=== PATIENT | male | born 1940 | race Caucasian/White ===

== ENCOUNTER → 2020-08-10 | Outpatient (CLI) | payer MEDICARE, BC ==
--- NOTE | 2020-08-11 10:51 | ECHOF ---
Referral Reason:[id number] MEASUREMENTS -------- HEIGHT: 175.3 cm WEIGHT: 103.9 kg BP: IVSd: 1.4 cm (0.6 - 1.1) LVIDd: 5.9 cm (3.9 - 5.3) LVPWd: 1.7 cm (0.6 - 1.1) IVSs: 1.8 cm LVIDs: 4.7 cm LVPWs: 1.9 cm LA Diam: 4.0 cm (2.7 - 3.8) LAESV Index (A-L): 32.71 ml/m IVSd: 1.5 cm (0.6 - 1.1) LVIDd: 4.8 cm (3.9 - 5.3) LVPWd: 1.7 cm (0.6 - 1.1) EDV(Teich): 106 ml Ao Diam: 3.2 cm (2.0 - 3.7) AV Cusp: 2.0 cm (1.5 - 2.6) LA Diam: 4.1 cm (2.7 - 3.8) MV EXCURSION: 14.447 mm (> 18.000) MV EF SLOPE: 81 mm/s (70 - 150) EPSS: 0.6 cm MV E Yovani: 0.49 m/s MV DecT: 243 ms MV A Yovani: 1.27 m/s MV E/A Ratio: 0.39 RAP: 5.00 mmHg RVSP: 12.99 mmHg FINDINGS -------- Sinus rhythm. This was a technically adequate study. The left ventricular size is normal. There is moderate concentric left ventricular hypertrophy. O verall left ventricular systolic function is low-normal with, an EF between 50 - 55 %. The right ventricle is normal in size. LA is midly dilated 29-33ml/m2. The right atrial size is normal. The aortic valve is trileaflet, and appears structurally normal. No aortic stenosis or regurgitation. Mild mitral regurgitation is present. Mild tricuspid regurgitation present. Right ventricular systolic pressure is normal at < 35 mmHg. There is no pulmonic regurgitation present. The aortic root size is normal. There is no pericardial effusion. CONCLUSIONS -------- 1. The left ventricular size is normal. 2. There is moderate concentric left ventricular hypertrophy. 3. Overall left ventricular systolic function is low-normal with, an EF between 50 - 55 %. 4. The right ventricle is normal in size. 5. LA is midly dilated 29-33ml/m2. 6. The right atrial size is normal. 7. The aortic valve is trileaflet, and appears structurally normal. No aortic stenosis or regurgitati on. 8. Mild mitral regurgitation is present. 9. Mild tricuspid regurgitation present. 10. The aortic root size is normal. 11. There is no pericardial effusion. SALES MANAGER [employer]: Anahi Judge RDCS
== END | disposition home or self-care (01) ==
LOC: RADECHMAIN 13:47
PROVIDERS: ATTEND Family Medicine
DX: I08.1 Rheumatic disorders of both mitral and tricuspid valves (principal)
CPT/HCPCS: 93306

== ENCOUNTER → 2020-08-28 | Outpatient (CLI) | payer MEDICARE, BC ==
--- NOTE | 2020-08-28 13:45 | US ---
EXAMINATION TYPE: US carotid duplex BILAT DATE OF EXAM: 08/28/2020 COMPARISON: NONE CLINICAL HISTORY: I10 Hypertension. very nervous patient with htn EXAM MEASUREMENTS: RIGHT: Peak Systolic Velocity (PSV) cm/sec ----- Right CCA: 143.1 ----- Right ICA: 130.3 ----- Right ECA: 147.1 ICA/CCA ratio: 0.9 RIGHT: End Diastole cm/sec ----- Right CCA: 38.6 ----- Right ICA: 44.6 ----- Right ECA: 17.0 LEFT: Peak Systolic Velocity (PSV) cm/sec ----- Left CCA: 137.2 ----- Left ICA: 84.4 ----- Left ECA: 111.6 ICA/CCA ratio: 0.6 LEFT: End Diastole cm/sec ----- Left CCA: 28.8 ----- Left ICA: 20.5 ----- Left ECA: 20.9 VERTEBRALS (direction of flow): Right Vertebral: Antegrade Left Vertebral: Antegrade Rhythm: Normal Mild homogeneous plaque seen bilaterally. IMPRESSION: Minimally elevated peak systolic velocity of the right internal carotid artery is most consistent wit h a 50-69% stenosis. Criteria for Assigning % of Stenosis / Diameter reduction (Estimation based on the indirect measurements of the internal carotid artery velocities (ICA PSV). 1. Normal (no stenosis)=ICA PSV < 125 cm/s: ratio < 2.0: ICA EDV<40 cm/s. 2. Less than 50% stenosis=ICA PSV < 125 cm/s: ratio < 2.0: ICA EDV<40 cm/s. 3. 50 to 69% stenosis=ICA PSV of 125 to 230 cm/s: ration 2.0 ? 4.0: ICA EDV 40-100 cm/s. 4. Greater than 70% stenosis to near occlusion= ICA PSV > 230 cm/s: ratio > 4.0: ICA EDV > 100 cm/s. 5. Near occlusion= ICA PSV velocities may be low or undetectable: variable ratio and ICA EDV. 6. Total occlusion=unable to detect flow.
== END | disposition home or self-care (01) ==
LOC: RADUSWWP 10:56
PROVIDERS: ATTEND Family Medicine
DX: I65.21 Occlusion and stenosis of right carotid artery (principal)
CPT/HCPCS: 93880

== ENCOUNTER → 2023-01-10 | Outpatient (CLI) | payer MEDICARE ==
--- NOTE | 2023-01-10 15:25 | US ---
EXAMINATION TYPE: US kidneys/renal and bladder DATE OF EXAM: 01/10/2023 COMPARISON: NONE CLINICAL INDICATION: Male, 82 years old with history of R94.4 ABNORMAL RESULTS OF KIDNEY FUNCTION SALOMÓN DIES; abn renal function test EXAM MEASUREMENTS: Right Kidney: 9.5 x 4.6 x 4.3 cm Left Kidney: 10.2 x 4.5 x 3.7 cm Right Kidney: No hydronephrosis or masses seen Left Kidney: No hydronephrosis or masses seen Bladder: wnl Bilateral Jets seen: Yes There is no evidence for hydronephrosis at this point in time. Corticomedullary differentiation is m aintained bilaterally. No nephrolithiasis is seen. No solid masses are identified. Simple left mid kidney 1.3 cm cyst. The urinary bladder is anechoic. Bilateral ureteral jets are seen. IMPRESSION: 1. No hydronephrosis or nephrolithiasis. 2. Simple left renal cyst.
== END | disposition home or self-care (01) ==
LOC: RADUSWWP 14:40
PROVIDERS: ATTEND Family Medicine
DX: N28.1 Cyst of kidney, acquired (principal); R94.4 Abnormal results of kidney function studies
CPT/HCPCS: 76770

== ENCOUNTER 2024-05-11 12:31 | Inpatient (IN) | payer MEDICARE ==
--- NOTE | 2024-05-11 13:39 | ED ---
General Adult HPI <Ton Penn - Last Filed: 05/11/24 16:53> - General Source: patient, family, EMS, RN notes reviewed, old records reviewed Mode of arrival: EMS Limitations: altered mental status <Remington Eason - Last Filed: 05/12/24 07:21> - General Chief complaint: Weakness Stated complaint: Weakness Time Seen by Provider: 05/11/24 12:36 - History of Present Illness Initial comments: Patient is a 83-year-old male who presents to the emergency department family over concern for dehydration. Patient was found with his pants off and vomit all over his shirt. He states that he had numerous episodes of emesis yesterday as well as numerous episodes of diarrhea. Patient states that his girlfriend is also sick. Denies any fevers. Denies any significant cough or congestion. D oes endorse some crampy lower abdominal pain. Denies any blood in his vomit or in his stool. Denies any bilious emesis. States he feels very thirsty. Denies any urinary complaints. Has a history of hypertension, hyperlipidemia, diabetes that is not insulin-dependent. Presents for further evaluation at this time. Upon arrival, it was found that patient has bedbugs and was decontaminated. (Remington Eason) - Related Data Home Medications Medication Instructions Recorded Confirmed Aspirin EC [Ecotrin Low Dose] 81 mg PO DAILY 05/11/24 05/11/24 Atorvastatin [Lipitor] 20 mg PO HS 05/11/24 05/11/24 Latanoprost [Latanoprost 0.005%] 1 drop BOTH EYES HS 05/11/24 05/11/24 Loratadine 10 mg PO DAILY 05/11/24 05/11/24 Timolol 0.25% Ophth Soln [Timoptic 1 drop BOTH EYES DAILY 05/11/24 05/11/24 0.25% Ophth Soln] hydroCHLOROthiazide [Hydrodiuril] 25 mg PO DAILY 05/11/24 05/11/24 lisinopriL [Zestril] 20 mg PO DAILY 05/11/24 05/11/24 metFORMIN HCL [Glucophage] 1,000 mg PO W/SUPPER 05/11/24 05/11/24 Allergies Allergy/AdvReac Type Severity Reaction Status Date / Time No Known Allergies Allergy Verified 05/11/24 17:13 Review of Systems ROS Other: All systems not noted in ROS Statement are negative. <IsamarTon - Last Filed: 05/11/24 16:53> ROS Other: All systems not noted in ROS Statement are negative. <Remington Eason - Last Filed: 05/12/24 07:21> ROS Statement: Those systems with pertinent positive or pertinent negative responses have been documented in the HPI. Review of Systems: CONST: Denies fever EYES: Denies blurry vision ENT: Denies nasal congestion C/V: Denies Chest pain RESP: Denies shortness of breath GI: Endorses abdominal pain : Denies dysuria SKIN: Denies rash. MSK: Denies joint pain. NEURO: Endorses generalized weakness (Remington Eason) Past Medical History Past Medical History: Diabetes Mellitus, Hypertension History of Any Multi-Drug Resistant Organisms: None Reported Additional Past Surgical History / Comment(s): left eye surgery 2022 Past Psychological History: PTSD Smoking Status: Former smoker Past Alcohol Use History: None Reported Past Drug Use History: None Reported <Remington Eason - Last Filed: 05/12/24 07:21> General Exam Limitations: altered mental status <Remington Eason - Last Filed: 05/12/24 07:21> - General Exam Comments Initial Comments: General: Appears in mild distress. HEAD: Normal with no signs of head trauma. EYES: PERRLA, EOMI, conjunctiva normal, no discharge. Pupils are 3 mm and equal bilaterally. ENT: Hearing grossly intact, normal oropharynx. Dry mucous membranes. RESPIRATORY: Clear breath sounds bilaterally. No wheezes, rales, or rhonchi. C/V: Regular rate and rhythm. S1 and S2 auscultated, no edema, peripheral pulses 2+ and intact throughout ABD: Abdomen soft, nondistended. Mildly tender to palpation across the lower quadrants. No guarding or rebound tenderness. No peritoneal signs. EXT: Normal range of motion, no obvious deformity SKIN: No rashes or lesions observed on exposed skin. NEURO: Alert and oriented x 4. No focal deficits. (Remington Eason) Course <ShayneTon bravo - Last Filed: 05/11/24 16:53> Vital Signs 05/11/24 05/11/24 05/11/24 12:33 13:42 14:24 Temperature 98.2 F Pulse Rate 73 79 71 Respiratory 18 18 18 Rate Blood Pressure 109/54 92/56 109/57 O2 Sat by Pulse 97 97 97 Oximetry 05/11/24 05/11/24 05/11/24 15:11 20:04 22:00 Temperature 98.4 F Pulse Rate 73 73 87 Respiratory 18 18 18 Rate Blood Pressure 113/60 123/73 120/67 O2 Sat by Pulse 96 96 96 Oximetry 05/12/24 05/12/24 01:00 06:26 Temperature Pulse Rate 83 87 Respiratory 18 18 Rate Blood Pressure 114/62 115/63 O2 Sat by Pulse 97 Oximetry - Reevaluation(s) Reevaluation #1: 05/11/24 16:54 I received this patient as a signout pending results of some of the studies. I received CT result, reviewed the labs, discussed the findings with the patient daughter. I reviewed that the patient was being admitted with consultations. We reviewed the CODE STATUS and she clarified that the patient would not want any artificial life support including no intubation or CPR. She stated that he would want all medications. Case discussed with the admitting physician. Case discussed with Dr. Joyner the earth science teacher, treatment recommendations incorporated. (Ton Penn) Procedures - Sepsis Sepsis Focused Exam #1 Time Sepsis Criteria Met: 14:20 Sepsis Focused Exam Date: 05/11/24 Sepsis Focused Exam Time: 14:30 Sepsis Focused Exam Complete: Yes Vital Signs & RN Notes Reviewed: Yes Capillary Refill: > 2 Seconds: Fingers, Toes Peripheral Pulses: Normal: Radial (R), Radial (L) Skin Color: Normal for Patient Respiratory Exam: normal lung sounds Cardiovascular Exam: regular rate, normal rhythm <Remington Eason - Last Filed: 05/12/24 07:21> Medical Decision Making - Lab Data Result diagrams: 05/11/24 13:42 05/11/24 13:42 <Ton Penn - Last Filed: 05/11/24 16:53> - Lab Data Result diagrams: 05/11/24 13:42 05/12/24 03:18 - EKG Data -: EKG Interpreted by Me <Remington Eason - Last Filed: 05/12/24 07:21> - Medical Decision Making Was pt. sent in by a medical professional or institution (, PA, LINE UP MACHINE OPERATOR, urgent c are, hospital, or skilled nursing...) When possible be specific @ -No Did you speak to anyone other than the patient for history (EMS, parent, family, police, friend...)? What history was obtained from this source @ -Spoke with patient's daughter who corroborated the story is provided by the patient. Did you review nursing and triage notes (agree or disagree)? Why? @ -I reviewed and agree with nursing and triage notes Were old charts reviewed (outside hosp., previous admission, EMS record, old EKG, old radiological studies, urgent care reports/EKG's, skilled nursing records)? Report findings @ -No old charts were reviewed Differential Diagnosis (chest pain, altered mental status, abdominal pain women, abdominal pain men, vaginal bleeding, weakness, fever, dyspnea, syncope, headache, dizziness, GI bleed, back pain, seizure, CVA, palpatations, mental health, musculoskeletal)? @ -Differential Weakness: Hypoglycemia, shock, sepsis, hyponatremia, anemia, infection, AR, ETOH, adverse medicine reaction, overdose, stroke, this is not meant to be an all-inclusive list. EKG interpreted by me (3pts min.). @ -As above X-rays interpreted by me (1pt min.). @ -Pending CT interpreted by me (1pt min.). @ -Pending U/S interpreted by me (1pt. min.). @ -None done What testing was considered but not performed or refused? (CT, X-rays, U/S, labs)? Why? @ -None What meds were considered but not given or refused? Why? @ -None Did you discuss the management of the patient with other professionals (professionals i.e. , PA, LINE UP MACHINE OPERATOR, lab, RT, psych nurse, public health social worker, rug clipper, teacher, communications officer, ed case manager)? Give summary @ -No Was smoking cessation discussed for >3mins.? @ -No Was critical care preformed (if so, how long)? @ -Yes, 31 minutes Were there social determinants of health that impacted care today? How? (Homelessness, low income, unemployed, alcoholism, drug addiction, transportation, low edu. Level, literacy, decrease access to med. care, senior care, rehab)? @ -No Was there de-escalation of care discussed even if they declined (Discuss DNR or withdrawal of care, Hospice)? DNR status @ -No What co-morbidities impacted this encounter? (DM, HTN, Smoking, COPD, CAD, C ancer, CVA, ARF, Chemo, Hep., AIDS, mental health diagnosis, sleep apnea, morbid obesity)? @ -None Was patient admitted / discharged? Hospital course, mention meds given and route, prescriptions, significant lab abnormalities, going to OR and other pertinent info. @ -Patient presents emergency department complaining of weakness, nausea, vomiting, diarrhea. Also has some mild abdominal discomfort. We will obtain abdominal lab workup, CT abdomen pelvis, screening EKG. Patient was in agreement this plan. He will be administered 2 L fluid bolus. He declines analgesia medications and antiemetics at this time. Vital signs are remarkable for mild hypotension which is likely secondary to dehydration. EKG shows no signs of acute ischemia.Patient's laboratory studies returned markable for leukocytosis of 24.1. Lactic acidosis of 8.9. Patient's blood pressure did improve following initial fluid administration. However patient does meet sepsis criteria at 1420. Patient initiated on broad-spectrum antibiotics, blood culture obtained and sent, patient already received 30 cc/kg fluid bolus with 2 L of lactated Ringer's as well as started on 130 cc an hour of lactated Ringer's. Patient CT imaging changed to CT without contrast due to an MADI. Patient has a lactic acidosis with an anion gap of 23. BUN is 50, creatinine is 3.15. Remainder the labs are still pending at this time. At this time is in my shift. Patient signed out to oncoming ER physician Dr. Penn who will follow-up on the remainder the workup. Undiagnosed new problem with uncertain prognosis? @ -No Drug Therapy requiring intensive monitoring for toxicity (Heparin, Nitro, Insulin, Cardizem)? @ -No Were any procedures done? @ -No Diagnosis/symptom? @ -Sepsis from colitis, dehydration wit MADI, nausea/vomiting/diarrhea Acute, or Chronic, or Acute on Chronic? @ -Acute Uncomplicated (without systemic symptoms) or Complicated (systemic symptoms)? @ -Complicated Side effects of treatment? @ -None Exacerbation, Progression, or Severe Exacerbation] @ -No Poses a threat to life or bodily function? @ -Yes (Remington Eason) - Lab Data Lab Results 03/08/25 03/08/25 03/08/25 Range/Units 13:42 13:42 13:42 WBC 24.1 H (3.8-10.6) k/uL RBC 3.86 L (4.30-5.90) m/uL Hgb 12.3 L (13.0-17.5) gm/dL Hct 39.0 (39.0-53.0) % MCV 101.1 H (80.0-100.0) fL MCH 31.9 (25.0-35.0) pg MCHC 31.6 (31.0-37.0) g/dL RDW 13.1 (11.5-15.5) % Plt Count 226 (150-450) k/uL MPV 9.0 Neutrophils % 94 % Lymphocytes % 4 % Monocytes % 2 % Eosinophils % 0 % Basophils % 0 % Neutrophils # 22.6 H (1.3-7.7) k/uL Lymphocytes # 0.9 L (1.0-4.8) k/uL Monocytes # 0.5 (0-1.0) k/uL Eosinophils # 0.0 (0-0.7) k/uL Basophils # 0.0 (0-0.2) k/uL PT 11.1 (10.0-12.5) sec INR 1.0 (<1.2) APTT 21.1 L (22.0-30.0) sec Sodium 137 (137-145) mmol/L Potassium 4.4 (3.5-5.1) mmol/L Chloride 96 L (98-107) mmol/L Carbon Dioxide 18 L (22-30) mmol/L Anion Gap 23 mmol/L BUN 50 H (9-20) mg/dL Creatinine 3.15 H (0.66-1.25) mg/dL Est GFR (CKD-EPI)AfAm 20 (>60 ml/min/1.73 sqM) Est GFR (CKD-EPI)NonAf 18 (>60 ml/min/1.73 sqM) Glucose 145 H (74-99) mg/dL Lactic Ac Sepsis Rflx Plasma Lactic Acid Krishna (0.7-2.0) mmol/L Calcium 9.6 (8.4-10.2) mg/dL Magnesium 2.4 H (1.6-2.3) mg/dL Total Bilirubin 1.1 (0.2-1.3) mg/dL AST 30 (17-59) U/L ALT 27 (4-49) U/L Alkaline Phosphatase 62 (38-126) U/L Total Protein 6.9 (6.3-8.2) g/dL Albumin 4.2 (3.5-5.0) g/dL Acetone, Qual (Negative) Influenza Type A (PCR) (Not Detectd) Influenza Type B (PCR) (Not Detectd) RSV (PCR) (Not Detectd) SARS-CoV-2 (PCR) (Not Detectd) 05/11/24 05/11/24 05/11/24 Range/Units 13:42 13:42 13:42 WBC (3.8-10.6) k/uL RBC (4.30-5.90) m/uL Hgb (13.0-17.5) gm/dL Hct (39.0-53.0) % MCV (80.0-100.0) fL MCH (25.0-35.0) pg MCHC (31.0-37.0) g/dL RDW (11.5-15.5) % Plt Count (150-450) k/uL MPV Neutrophils % % Lymphocytes % % Monocytes % % Eosinophils % % Basophils % % Neutrophils # (1.3-7.7) k/uL Lymphocytes # (1.0-4.8) k/uL Monocytes # (0-1.0) k/uL Eosinophils # (0-0.7) k/uL Basophils # (0-0.2) k/uL PT (10.0-12.5) sec INR (<1.2) APTT (22.0-30.0) sec Sodium (137-145) mmol/L Potassium (3.5-5.1) mmol/L Chloride (98-107) mmol/L Carbon Dioxide (22-30) mmol/L Anion Gap mmol/L BUN (9-20) mg/dL Creatinine (0.66-1.25) mg/dL Est GFR (CKD-EPI)AfAm (>60 ml/min/1.73 sqM) Est GFR (CKD-EPI)NonAf (>60 ml/min/1.73 sqM) Glucose (74-99) mg/dL Lactic Ac Sepsis Rflx Plasma Lactic Acid Krishna 8.9 H* (0.7-2.0) mmol/L Calcium (8.4-10.2) mg/dL Magnesium (1.6-2.3) mg/dL Total Bilirubin (0.2-1.3) mg/dL AST (17-59) U/L ALT (4-49) U/L Alkaline Phosphatase (38-126) U/L Total Protein (6.3-8.2) g/dL Albumin (3.5-5.0) g/dL Acetone, Qual Negative (Negative) Influenza Type A (PCR) Not Detected (Not Detectd) Influenza Type B (PCR) Not Detected (Not Detectd) RSV (PCR) Not Detected (Not Detectd) SARS-CoV-2 (PCR) Not Detected (Not Detectd) 05/11/24 05/11/24 Range/Units 14:19 14:50 WBC (3.8-10.6) k/uL RBC (4.30-5.90) m/uL Hgb (13.0-17.5) gm/dL Hct (39.0-53.0) % MCV (80.0-100.0) fL MCH (25.0-35.0) pg MCHC (31.0-37.0) g/dL RDW (11.5-15.5) % Plt Count (150-450) k/uL MPV Neutrophils % % Lymphocytes % % Monocytes % % Eosinophils % % Basophils % % Neutrophils # (1.3-7.7) k/uL Lymphocytes # (1.0-4.8) k/uL Monocytes # (0-1.0) k/uL Eosinophils # (0-0.7) k/uL Basophils # (0-0.2) k/uL PT (10.0-12.5) sec INR (<1.2) APTT (22.0-30.0) sec Sodium (137-145) mmol/L Potassium (3.5-5.1) mmol/L Chloride (98-107) mmol/L Carbon Dioxide (22-30) mmol/L Anion Gap mmol/L BUN (9-20) mg/dL Creatinine (0.66-1.25) mg/dL Est GFR (CKD-EPI)AfAm (>60 ml/min/1.73 sqM) Est GFR (CKD-EPI)NonAf (>60 ml/min/1.73 sqM) Glucose (74-99) mg/dL Lactic Ac Sepsis Rflx Y Plasma Lactic Acid Krishna 8.4 H* (0.7-2.0) mmol/L Calcium (8.4-10.2) mg/dL Magnesium (1.6-2.3) mg/dL Total Bilirubin (0.2-1.3) mg/dL AST (17-59) U/L ALT (4-49) U/L Alkaline Phosphatase (38-126) U/L Total Protein (6.3-8.2) g/dL Albumin (3.5-5.0) g/dL Acetone, Qual (Negative) Influenza Type A (PCR) (Not Detectd) Influenza Type B (PCR) (Not Detectd) RSV (PCR) (Not Detectd) SARS-CoV-2 (PCR) (Not Detectd) - EKG Data EKG Comments: 12-lead Electrocardiogram Interpretation Note EKG was reviewed and interpreted by myself. 12-lead ECG performed at 1328 is interpreted by me as revealing normal sinus rhythm at a rate of 73 beats per minute. Left axis deviation. IL interval is 260 ms, QRS duration is 138 ms, QTc is 445 ms. There were no ST or T wave abnormalities to suggest myocardial ischemia or injury. R wave progression across the precordium was delayed. By my interpretation this EKG is non-diagnostic for acute ischemia. (Remington Eason) Critical Care Time Critical Care Time: Yes Total Critical Care Time: 31 <Remington Eason - Last Filed: 05/12/24 07:21> Disposition <Ton Penn - Last Filed: 05/11/24 16:53> <Remington Eason - Last Filed: 05/12/24 07:21> Clinical Impression: Nausea and vomiting, Dehydration, Diarrhea, Sepsis Disposition: ADMITTED IP TO THIS HOSP Condition: Serious
[2024-05-11 14:01] LABS: Basophils % (A) 0 %; Eosinophils % (A) 0 %; HGB 12.3 gm/dL (13.0-17.5); Lymphocytes # (A) 0.9 k/uL (1.0-4.8); Lymphocytes % (A) 4 %; MCH 31.9 pg (25.0-35.0); MCHC 31.6 g/dL (31.0-37.0); MCV 101.1 fL (80.0-100.0); Monocytes # (A) 0.5 k/uL (0-1.0); Monocytes % (A) 2 %; Neutrophils # (A) 22.6 k/uL (1.3-7.7); Neutrophils % (A) 94 %; Platelet Count 226 k/uL (150-450); RBC 3.86 m/uL (4.30-5.90); RDW 13.1 % (11.5-15.5); WBC 24.1 k/uL (3.8-10.6)
[2024-05-11] MEDS ORDERED: VANCOMYCIN IV PER PHARMACY 1 EACH MISC MISCELLANE PRN (14:20)
[2024-05-11 14:22] LABS: AST 30 U/L (17-59); African American GFR (CKD) 20 (>60 ml/min/1.73 sqM); Albumin 4.2 g/dL (3.5-5.0); Alkaline Phosphatase 62 U/L (38-126); Anion Gap 23 mmol/L; Blood Urea Nitrogen 50 mg/dL (9-20); Calcium 9.6 mg/dL (8.4-10.2); Carbon Dioxide 18 mmol/L (22-30); Chloride 96 mmol/L (98-107); Glucose 145 mg/dL (74-99); Magnesium 2.4 mg/dL (1.6-2.3); Non-African American GFR(CKD) 18 (>60 ml/min/1.73 sqM); Potassium 4.4 mmol/L (3.5-5.1); Sodium 137 mmol/L (137-145); Total Bilirubin 1.1 mg/dL (0.2-1.3); Total Protein 6.9 g/dL (6.3-8.2)
[2024-05-11 14:36] LABS: Influenza A Not Detected (Not Detectd); Influenza B Not Detected (Not Detectd); RSV Not Detected (Not Detectd)
[2024-05-11 14:40] LABS: Partial Thromboplastin Time 21.1 sec (22.0-30.0); Prothrombin Time 11.1 sec (10.0-12.5)
[2024-05-11 14:51] LABS: ALT 27 U/L (4-49)
[2024-05-11] MEDS: LACTATED RINGERS 1,000 ML IV ONE ×2 (14:52→14:53)
[2024-05-11] MEDS: PIPERACILLIN-TAZOBACTAM 3.375 GM in SODIUM CHLORIDE 0.9% 100 ML IVPB ONE (15:09)
[2024-05-11] MEDS: LACTATED RINGERS 1,000 ML IV SCH (15:11)
--- NOTE | 2024-05-11 15:39 | XR ---
EXAMINATION TYPE: XR chest 2V DATE OF EXAM: 05/11/2024 3:34 PM COMPARISON: None. CLINICAL INDICATION: Male, 83 years old with history of Weakness; LOCATED [facility]IN [facility] TECHNIQUE: XR chest 2V Frontal and lateral views of the chest. FINDINGS: Lungs/Pleura: There is no evidence of pleural effusion, focal consolidation, or pneumothorax. Pulmonary vascularity: Unremarkable. Heart/mediastinum: Cardiomediastinal silhouette is unremarkable. Musculoskeletal: No acute osseous pathology. Other findings: None IMPRESSION: No acute cardiopulmonary disease/process. [facility], , 05/11/2024 3:37 PM
--- NOTE | 2024-05-11 15:49 | CT ---
EXAMINATION TYPE: CT abdomen pelvis wo con DATE OF EXAM: 05/11/2024 3:34 PM COMPARISON: None. CLINICAL INDICATION: Male, 83 years old with history of abd pain, n/v/d; Abdominal pain, N/V/D. TECHNIQUE: Axial CT abdomen pelvis wo con;Sagittal and coronal reformats were created on a separate workstation. Oral contrast used: without Oral Contrast CT DLP: 801.9 mGycm, Automated exposure control for dose reduction was used. FINDINGS: LOWER CHEST: No acute abnormality. ABDOMEN LIVER: Unremarkable GALLBLADDER AND BILE DUCTS: Unremarkable. PANCREAS: Unremarkable. SPLEEN: Unremarkable. ADRENAL GLANDS: Unremarkable. KIDNEYS AND URETERS: No evidence of hydronephrosis or renal calculus. The ureters are unremarkable. Simple cyst in the mid left kidney. PELVIS BLADDER: Circumferential wall thickening of the urinary bladder. REPRODUCTIVE: Unremarkable. ABDOMEN & PELVIS STOMACH AND BOWEL: Stomach and duodenum are unremarkable No evidence of bowel obstruction. Long segme nt wall thickening of the descending and sigmoid colon with surrounding mesenteric inflammation/edema . Small left lower quadrant loculated fluid collection adjacent to the sigmoid colon measuring 3.3 x 3.0 cm without definite evidence of free air. No drainable abscess at this time. Small hiatal hernia. PERITONEUM/RETROPERITONEUM: No evidence of pneumoperitoneum or free fluid. VASCULATURE: No evidence of aortic aneurysm. MUSCULOSKELETAL: No acute osseous abnormalities LYMPH NODES: No gross evidence for lymphadenopathy. SOFT TISSUE/ABDOMINAL WALL: Unremarkable IMPRESSION: 1. Long segment wall thickening of the descending and sigmoid colon with surrounding mesenteric infl ammation and liquid stool suggesting infectious colitis. Additionally, there is a small developing lo culated fluid collection adjacent to the sigmoid colon measuring approximately 3.0 cm. No drainable a bscess at this time. No significant free air/pneumoperitoneum. 2. Circumferential urinary bladder wall thickening, recommend correlation with urinalysis for cystit is. [facility], , 05/11/2024 3:47 PM
[2024-05-11] MEDS: VANCOMYCIN 1,750 MG in SODIUM CHLORIDE 0.9% 500 ML 500 ML IVPB ONE (16:03)
[2024-05-11] MEDS ORDERED: PIPERACILLIN-TAZOBACTAM 3.375 GM in SODIUM CHLORIDE 0.9% 100 ML IVPB SCH ×2 (20:00→21:00)
[2024-05-11] MEDS: PIPERACILLIN-TAZOBACTAM 3.375 GM in SODIUM CHLORIDE 0.9% 100 ML IVPB SCH (21:03)
[2024-05-11 22:43] LABS: Amorphous Sediment,Urine Few /hpf; Appearance,Urine Cloudy (Clear); Bacteria,Urine Occasional /hpf; Bilirubin,Urine Negative (Negative); Blood,Urine Moderate (Negative); Color,Urine Yellow; Glucose,Urine (UA) Negative (Negative); Hyaline Casts,Urine 23 /lpf (0-2); Ketones,Urine Negative (Negative); Leukocyte Esterase,Urine Negative (Negative); Mucus,Urine Rare /hpf; Nitrite,Urine Negative (Negative); Protein,Urine 1+ (Negative); RBC,Urine 1 /hpf (0-5); Specific Gravity,Urine 1.012 (1.001-1.035); Squamous Epithelial Cell,Urine 1 /hpf (0-4); Urobilinogen,Urine <2.0 mg/dL (<2.0); WBC,Urine 4 /hpf (0-5)
[2024-05-12 03:46] LABS: African American GFR (CKD) 27 (>60 ml/min/1.73 sqM); Non-African American GFR(CKD) 23 (>60 ml/min/1.73 sqM)
[2024-05-12] MEDS: PANTOPRAZOLE 40 MG/10 ML VIAL IV SCH (09:03)
[2024-05-12] MEDS ORDERED: DEXTROSE 50% SYRINGE 50 ML IVP PRN ×2 (10:05)
--- NOTE | 2024-05-12 10:20 | P.CON ---
Consult Note - . Consult date: 05/12/24 Assessment/Plan:: Patient is a 83-year-old male who presents to the [facility] emergency department with family over concern for dehydration. Patient was found with his pants off and vomit all over his shirt. He states that he had numerous episodes of emesis yes terday as well as numerous episodes of diarrhea. Patient states that his girlfriend is also sick. Denies any fevers. Denies any significant cough or congestion. Does endorse some crampy lower abdominal pain. Denies any blood in his vomit or in his stool. Denies any bilious emesis. States he feels very thirsty. Denies any urinary complaints. Has a history of hypertension, hyperlipidemia, diabetes that is not insulin-dependent. Presents for further evaluation at this time. CT-AP shows thickening of the descending and sigmoid colon with associated mesenteric inflammation and a loculated fluid collection adjacent to the colon. ROS Other: All systems not noted in ROS Statement are negative. CONST: Denies fever EYES: Denies blurry vision ENT: Denies nasal congestion C/V: Denies Chest pain RESP: Denies shortness of breath GI: Endorses abdominal pain : Denies dysuria SKIN: Denies rash. MSK: Denies joint pain. NEURO: Endorses generalized weakness Past Medical History Past Medical History: Diabetes Mellitus, Hypertension History of Any Multi-Drug Resistant Organisms: None Reported Additional Past Surgical History / Comment(s): left eye surgery 2022 Past Psychological History: PTSD Smoking Status: Former smoker Past Alcohol Use History: None Reported Past Drug Use History: None Reported General Exam General: Appears in mild distress. HEAD: Normal with no signs of head trauma. EYES: PERRLA, EOMI, conjunctiva normal, no discharge. Pupils are 3 mm and equal bilaterally. ENT: Hearing grossly intact, normal oropharynx. Dry mucous membranes. RESPIRATORY: Clear breath sounds bilaterally. No wheezes, rales, or rhonchi. C/V: Regular rate and rhythm. S1 and S2 auscultated, no edema, peripheral pulses 2+ and intact throughout ABD: Abdomen soft, nondistended. Mildly tender to palpation across the lower quadrants. No guarding or rebound tenderness. No peritoneal signs. EXT: Normal range of motion, no obvious deformity SKIN: No rashes or lesions observed on exposed skin. NEURO: Alert and oriented x 4. No focal deficits. 83 year old male with abdominal pain, vomiting, and diarrhea. CT-AP shows descending/sigmoid colitis with associated abscess -NPO -IV fluids -Zosyn -IR consult for possible drainage of abscess -Nausea and Pain Control -Serial Abdominal Exams -AM labs Robles Lassiter DO [facility] [phone]
[2024-05-12] MEDS: VANCOMYCIN 1,500 MG in SODIUM CHLORIDE 0.9% 500 ML 500 ML IVPB ONE (10:52)
[2024-05-12 11:30] LABS: Creatinine,Urine Random 40.4 mg/dL
[2024-05-12 12:09] LABS: Glucose,Whole Blood 115 mg/dL (70-110)
[2024-05-12] MEDS: INSULIN LISPRO (HumaLOG) 100 UNIT/ML 10 mL VL SQ SCH (12:42)
--- NOTE | 2024-05-12 12:42 | US ---
EXAMINATION TYPE: US kidneys/renal and bladder DATE OF EXAM: 05/12/2024 COMPARISON: CT 05/11/24 CLINICAL INDICATION: Male, 83 years old with history of Madi; MADI TECHNIQUE: Grayscale imaging of the bilateral kidneys and urinary bladder: FINDINGS: EXAM MEASUREMENTS: Right Kidney: 10.7x4.6x5.2 cm Left Kidney: 9.7x5.5x5.1 cm Right Kidney: No hydronephrosis or masses seen Left Kidney: cystic again noted: 1.9x1.7x1.8 Bladder: wnl There is no evidence for hydronephrosis at this point in time. No nephrolithiasis is seen. No candelaria s are identified. The urinary bladder is anechoic. exam limited by bowel gas and body habitus IMPRESSION: 1. No solid renal mass, renal calcification or hydronephrosis. 2. Stable 1.9 cm cyst of the left kidney image 3. unremarkable urinary bladder. 4. No renal atrophy. [facility], Workstation: TERRY 05/12/2024 12:40 PM
--- NOTE | 2024-05-12 13:46 | P.HPIM ---
History of Present Illness H&P Date: 05/12/24 History of present illness; patient is a 83-year-old gentleman with past medical history significant for hypertension, diabetes mellitus, hyperlipidemia who presented to the ER because of vomiting and diarrhea. Was brought in by family according to them patient is sick for the last couple of days. Patient has been having multiple episodes of diarrhea and vomiting. Vomiting is projectile, no evidence of any blood in it. Patient having multiple bouts of loose stools with no evidence of any blood in it. Patient also complains denies abdominal pain which is cramping in nature involving the whole abdomen. Patient's girlfriend is also been sick. There is no complaint of fever or chills. There is no complaint of chest pain or shortness of breath. Patient was complaining of lethargic and weakness. Patient has not been eating and drinking enough and was complaining of being thirsty. Because of the symptoms, patient brought to the ER Initial lab work done in the ER showed WBC 24.1, hemoglobin 12.3, platelet count 226, sodium 137, potassium 4.4, BUN 50, creatinine 3.15, glucose 145, lactate 8.9 magnesium 2.4 AST 30, ALT 27, Influenza A not detected Influenza B not detected RSV not detected COVID-19 not detected EKG done in the ER showed heart rate of 73 , no ST segment elevation or depression seen, no T-wave inversions seen. Chest x-ray done in the ER showed no acute cardiopulmonary process CT abdomen and pelvis done showed long segment wall thickening of the ascending and sigmoid colon with surrounding mesenteric inflammation and liquid stool suggesting infectious colitis. Additionally there is a small developing lobulated fluid collection adjacent to the sigmoid colon measuring approximately 3 cm, no drainable abscess at this time. Patient admitted to internal medicine service REVIEW OF SYSTEMS: CONSTITUTIONAL: As mentioned above. HEENT: No recent visual problems or hearing problems. Denied any sore throat. CARDIOVASCULAR: No chest pain, orthopnea, PND, no palpitations, no syncope. PULMONARY: No shortness of breath, no cough, no hemoptysis. GASTROINTESTINAL: As mentioned above NEUROLOGICAL: No headaches, no weakness, no numbness. HEMATOLOGICAL: Denies any bleeding or petechiae. GENITOURINARY: Denies any burning micturition, frequency, or urgency. MUSCULOSKELETAL/RHEUMATOLOGICAL: Denies any joint pain, swelling, or any muscle pain. ENDOCRINE: Denies any polyuria or polydipsia. The rest of the 14-point review of systems is negative. PHYSICAL EXAMINATION: GENERAL: The patient is alert and oriented x3, not in any acute distress. Well developed, well nourished. HEENT: Pupils are round and equally reacting to light. EOMI. No scleral icterus. No conjunctival pallor. Normocephalic, atraumatic. No pharyngeal erythema. No thyromegaly. CARDIOVASCULAR: S1 and S2 present. No murmurs, rubs, or gallops. PULMONARY: Chest is clear to auscultation, no wheezing or crackles. ABDOMEN: Soft, nontender, nondistended, normoactive bowel sounds. No palpable organomegaly. MUSCULOSKELETAL: No joint swelling or deformity. EXTREMITIES: No cyanosis, clubbing, or pedal edema. NEUROLOGICAL: Gross neurological examination did not reveal any focal deficits. SKIN: No rashes. Assessment and plan Severe sepsis Lactic acidosis Acute colitis involving descending and sigmoid colon with fluid collection adjacent to sigmoid colon measuring 3 cm Acute kidney injury Metabolic acidosis Abdominal pain History of hypertension History of hyperlipidemia History of diabetes mellitus Monitor vital signs Monitor CBC Monitor CMP Continue telemetry monitoring Ordered blood cultures Ordered stool for C. difficile Start patient on IV Zosyn Start IV fluids Strict I's and O's, daily weights Avoid nephrotoxic agents Order ultrasound of kidneys Ordered urine lites, serum and urine osmolality Avoid hypotension Hold lisinopril and HCTZ Consult nephrology Consult general surgery Consult ID Labs and medication were reviewed.. Continue same treatment. Continue with symptomatic treatment. Resume home medication. Monitor labs and vitals. DVT and GI prophylaxis. Further recommendations as per clinical course of the patient Dictation was produced using [employer] dictation software. please excuse any grammatical, word or spelling errors. Past Medical History Past Medical History: Diabetes Mellitus, Hypertension History of Any Multi-Drug Resistant Organisms: None Reported Additional Past Surgical History / Comment(s): left eye surgery 2022 Past Psychological History: PTSD Smoking Status: Former smoker Past Alcohol Use History: None Reported Past Drug Use History: None Reported Medications and Allergies Home Medications Medication Instructions Recorded Confirmed Type Aspirin EC [Ecotrin Low Dose] 81 mg PO DAILY 05/11/24 05/11/24 History Atorvastatin [Lipitor] 20 mg PO HS 05/11/24 05/11/24 History Latanoprost [Latanoprost 0.005%] 1 drop BOTH EYES HS 05/11/24 05/11/24 History Loratadine 10 mg PO DAILY 05/11/24 05/11/24 History Timolol 0.25% Ophth Soln [Timoptic 1 drop BOTH EYES DAILY 05/11/24 05/11/24 History 0.25% Ophth Soln] hydroCHLOROthiazide [Hydrodiuril] 25 mg PO DAILY 05/11/24 05/11/24 History lisinopriL [Zestril] 20 mg PO DAILY 05/11/24 05/11/24 History metFORMIN HCL [Glucophage] 1,000 mg PO W/SUPPER 05/11/24 05/11/24 History Allergies Allergy/AdvReac Type Severity Reaction Status Date / Time No Known Allergies Allergy Verified 05/11/24 17:13 Physical Exam Vitals: Vital Signs Temp Pulse Pulse Resp BP BP Pulse Ox 05/12/24 08:57 98.1 F 82 18 130/73 100 05/12/24 06:26 87 18 115/63 97 05/12/24 01:00 83 18 114/62 05/11/24 22:00 87 18 120/67 96 05/11/24 20:04 98.4 F 73 18 123/73 96 05/11/24 15:11 73 18 113/60 96 05/11/24 14:24 71 18 109/57 97 05/11/24 13:42 79 18 92/56 97 05/11/24 12:33 98.2 F 73 18 109/54 97 Intake and Output 05/11/24 05/12/24 05/12/24 21:59 06:59 14:59 Output Total Balance Output: Post Void Residual Results CBC & Chem 7: 05/11/24 13:42 05/12/24 03:18 Labs: Abnormal Lab Results - Last 24 Hours (Table) 05/11/24 05/11/24 05/11/24 Range/Units 13:42 13:42 13:42 WBC 24.1 H (3.8-10.6) k/uL RBC 3.86 L (4.30-5.90) m/uL Hgb 12.3 L (13.0-17.5) gm/dL MCV 101.1 H (80.0-100.0) fL Neutrophils # 22.6 H (1.3-7.7) k/uL Lymphocytes # 0.9 L (1.0-4.8) k/uL APTT 21.1 L (22.0-30.0) sec Chloride 96 L (98-107) mmol/L Carbon Dioxide 18 L (22-30) mmol/L BUN 50 H (9-20) mg/dL Creatinine 3.15 H (0.66-1.25) mg/dL Glucose 145 H (74-99) mg/dL Plasma Lactic Acid Krishna (0.7-2.0) mmol/L Magnesium 2.4 H (1.6-2.3) mg/dL Urine Protein (Negative) Urine Blood (Negative) Amorphous Sediment (None) /hpf Urine Bacteria (None) /hpf Hyaline Casts (0-2) /lpf Urine Mucus (None) /hpf 05/11/24 05/11/24 05/11/24 Range/Units 13:42 14:50 18:10 WBC (3.8-10.6) k/uL RBC (4.30-5.90) m/uL Hgb (13.0-17.5) gm/dL MCV (80.0-100.0) fL Neutrophils # (1.3-7.7) k/uL Lymphocytes # (1.0-4.8) k/uL APTT (22.0-30.0) sec Chloride (98-107) mmol/L Carbon Dioxide (22-30) mmol/L BUN (9-20) mg/dL Creatinine (0.66-1.25) mg/dL Glucose (74-99) mg/dL Plasma Lactic Acid Krishna 8.9 H* 8.4 H* 6.7 H* (0.7-2.0) mmol/L Magnesium (1.6-2.3) mg/dL Urine Protein (Negative) Urine Blood (Negative) Amorphous Sediment (None) /hpf Urine Bacteria (None) /hpf Hyaline Casts (0-2) /lpf Urine Mucus (None) /hpf 05/11/24 05/11/24 05/12/24 Range/Units 22:00 22:50 03:18 WBC (3.8-10.6) k/uL RBC (4.30-5.90) m/uL Hgb (13.0-17.5) gm/dL MCV (80.0-100.0) fL Neutrophils # (1.3-7.7) k/uL Lymphocytes # (1.0-4.8) k/uL APTT (22.0-30.0) sec Chloride (98-107) mmol/L Carbon Dioxide (22-30) mmol/L BUN (9-20) mg/dL Creatinine 2.50 H (0.66-1.25) mg/dL Glucose (74-99) mg/dL Plasma Lactic Acid Krishna 3.9 H* (0.7-2.0) mmol/L Magnesium (1.6-2.3) mg/dL Urine Protein 1+ H (Negative) Urine Blood Moderate H (Negative) Amorphous Sediment Few H (None) /hpf Urine Bacteria Occasional H (None) /hpf Hyaline Casts 23 H (0-2) /lpf Urine Mucus Rare H (None) /hpf 05/12/24 Range/Units 03:18 WBC (3.8-10.6) k/uL RBC (4.30-5.90) m/uL Hgb (13.0-17.5) gm/dL MCV (80.0-100.0) fL Neutrophils # (1.3-7.7) k/uL Lymphocytes # (1.0-4.8) k/uL APTT (22.0-30.0) sec Chloride (98-107) mmol/L Carbon Dioxide (22-30) mmol/L BUN (9-20) mg/dL Creatinine (0.66-1.25) mg/dL Glucose (74-99) mg/dL Plasma Lactic Acid Krishna 3.0 H* (0.7-2.0) mmol/L Magnesium (1.6-2.3) mg/dL Urine Protein (Negative) Urine Blood (Negative) Amorphous Sediment (None) /hpf Urine Bacteria (None) /hpf Hyaline Casts (0-2) /lpf Urine Mucus (None) /hpf
--- NOTE | 2024-05-12 13:49 | P.NPCON ---
History of Present Illness - Reason for Consult Consult date: 05/12/24 acute renal failure - Chief Complaint abdominal pain - History of Present Illness 83-year-old male with PMHx of Diabetes Mellitus, Hypertension, presents to the ED c/o abdominal pain, nausea vomiting, and concern for dehydration. non contrast CT showed thickening of the descending and sigmoid colon with associated mesenteric inflammation and a loculated fluid collection adjacent to the colon. he is admitted fro further management of colitis, he was started on vancomycin and zosyn, maintained on IVF , surgery and IR consulted for evaluation of colonic abscess . nephrology is consulted for MADI. patiet follows with Dr. Lawrence for CKD 3. on presentation cr. was 3.1, now trending to 2.5, cr. in 10/2023 was 1.5. Review of Systems as mentioned in HPI Past Medical History Past Medical History: Diabetes Mellitus, Hypertension History of Any Multi-Drug Resistant Organisms: None Reported Additional Past Surgical History / Comment(s): left eye surgery 2022 Past Psychological History: PTSD Smoking Status: Former smoker Past Alcohol Use History: None Reported Past Drug Use History: None Reported Medications and Allergies Home Medications Medication Instructions Recorded Confirmed Type Aspirin EC [Ecotrin Low Dose] 81 mg PO DAILY 05/11/24 05/11/24 History Atorvastatin [Lipitor] 20 mg PO HS 05/11/24 05/11/24 History Latanoprost [Latanoprost 0.005%] 1 drop BOTH EYES HS 05/11/24 05/11/24 History Loratadine 10 mg PO DAILY 05/11/24 05/11/24 History Timolol 0.25% Ophth Soln [Timoptic 1 drop BOTH EYES DAILY 05/11/24 05/11/24 History 0.25% Ophth Soln] hydroCHLOROthiazide [Hydrodiuril] 25 mg PO DAILY 05/11/24 05/11/24 History lisinopriL [Zestril] 20 mg PO DAILY 05/11/24 05/11/24 History metFORMIN HCL [Glucophage] 1,000 mg PO W/SUPPER 05/11/24 05/11/24 History Allergies Allergy/AdvReac Type Severity Reaction Status Date / Time No Known Allergies Allergy Verified 05/11/24 17:13 Physical Exam Vitals: Vital Signs Temp Pulse Pulse Resp BP BP Pulse Ox 05/12/24 08:57 98.1 F 82 18 130/73 100 05/12/24 06:26 87 18 115/63 97 05/12/24 01:00 83 18 114/62 05/11/24 22:00 87 18 120/67 96 05/11/24 20:04 98.4 F 73 18 123/73 96 05/11/24 15:11 73 18 113/60 96 05/11/24 14:24 71 18 109/57 97 05/11/24 13:42 79 18 92/56 97 05/11/24 12:33 98.2 F 73 18 109/54 97 Intake and Output 05/11/24 05/12/24 05/12/24 21:59 06:59 14:59 Output Total 900 Balance -900 Output: Urine 900 Post Void Residual Other: Voiding Method Toilet Urinal # Bowel Movements 0 General: no acute distress. HEAD: Normal with no signs of head trauma. EYES: PERRLA, EOMI, conjunctiva normal, no discharge. Pupils are 3 mm and equal bilaterally. ENT: Hearing grossly intact, normal oropharynx. Dry mucous membranes. RESPIRATORY: Clear breath sounds bilaterally. No wheezes, rales, or rhonchi. C/V: Regular rate and rhythm. S1 and S2 auscultated, no edema, peripheral pulses 2+ and intact throughout ABD: Abdomen soft, nondistended. + abdominal tenderness EXT: chronic LE skin changes and discoloration SKIN: No rashes or lesions observed on exposed skin. NEURO: Alert and oriented x 4. No focal deficits. Results - Lab Results Most recent lab results Calcium 9.6 mg/dL (8.4-10.2) 05/11/24 13:42 Magnesium 2.4 mg/dL (1.6-2.3) H 05/11/24 13:42 05/11/24 13:42 05/12/24 03:18 Assessment and Plan Assessment: # Non oliguric Acute kidney injury on CKD stage 3, likely prerenal versus ATN. cr at [facility] 1.5, presented with cr. 3.1-> 2.5 post IVF , UA +hyaline cast , moderate blood, +proteins , CT w/o contrast ruled out hydronephrosis, simple cyst in the left kidney # metabolic acidosis, due to MADI, expect improvement with IVF # Severe lactic acidosis , sepsis, colitis with possible colonic abscess , surgery/ IR consulted , started on vanco/zosyn, vancomycin was discontinued , lactic acid trending down # anemia, check iron panel Plan: -continue IVF for 24 hours -monitor I/O -daily renal panel -check iron level -can start sodium bicarb 650 mg BID PO if no improvement in bicarb level with IVF -continue ABx per primary team
--- NOTE | 2024-05-12 13:53 | P.CNPUL ---
History of Present Illness Consult date: 05/12/24 Requesting physician: Duran Hu Reason for consult: other (Possible ICU admission) Chief complaint: Vomiting and diarrhea History of present illness: This is a 83-year-old male patient with a known history of PTSD, diabetes mellitus, hypertension, former smoker who was brought into the emergency room last evening after being found with his pants off and vomit all over his shirt. He had stated he had numerous episodes of emesis the day before as well as numerous episodes of diarrhea. Chest x-ray shows no acute cardiopulmonary process. CT scan of the abdomen revealed a long segment wall thickening of the descending and sigmoid colon with surrounding mesenteric inflammation and liquid stool suggesting infectious colitis. There is a small developing loculated fluid collection adjacent to the sigmoid colon measuring approximately 3.0 cm. No drainable abscess at this time. No significant free air/pneumoperitoneum. White count 24.1. Hemoglobin 12.3. Platelets 226. Sodium 137. Potassium 4.4. Bicarb 18. BUN 50. Creatinine 3.15. Glucose 145. Viral screen negative. He is seen today in the emergency department resting on a stretcher. He is awake and alert in no acute distress. He is maintaining O2 saturations in the 90s on room air. He has lactated Ringer's at 130 mL/h. He received 2 L of fluid resuscitation. He was given vancomycin and Zosyn. Review of Systems REVIEW OF SYSTEMS: CONSTITUTIONAL: Denies any recent significant weight loss or weight gain. EYES: Denies change in vision. EARS, NOSE, MOUTH, THROAT: Denies headaches, denies sore throat. CARDIOVASCULAR: Denies chest pain, palpitations or syncopal episodes. RESPIRATORY: Denies shortness of breath, cough, congestion or hemoptysis. GASTROINTESTINAL: Positive for nausea, vomiting, diarrhea GENITOURINARY: Denies hematuria, denies infections. MUSKULOSKELETAL: Denies pain, denies swelling. INTEGUMENTARY: Denies rash, denies eczema. NEUROLOGICAL: Denies recent memory loss, no recent seizure activity. PSYCHIATRIC: Denies anxiety, denies depression. HEMATOLOGIC/LYMPHATIC: Denies anemia, denies enlarged lymph nodes. Past Medical History Past Medical History: Diabetes Mellitus, Hypertension History of Any Multi-Drug Resistant Organisms: None Reported Additional Past Surgical History / Comment(s): left eye surgery 2022 Past Psychological History: PTSD Smoking Status: Former smoker Past Alcohol Use History: None Reported Past Drug Use History: None Reported Medications and Allergies Home Medications Medication Instructions Recorded Confirmed Type Aspirin EC [Ecotrin Low Dose] 81 mg PO DAILY 05/11/24 05/11/24 History Atorvastatin [Lipitor] 20 mg PO HS 05/11/24 05/11/24 History Latanoprost [Latanoprost 0.005%] 1 drop BOTH EYES HS 05/11/24 05/11/24 History Loratadine 10 mg PO DAILY 05/11/24 05/11/24 History Timolol 0.25% Ophth Soln [Timoptic 1 drop BOTH EYES DAILY 05/11/24 05/11/24 History 0.25% Ophth Soln] hydroCHLOROthiazide [Hydrodiuril] 25 mg PO DAILY 05/11/24 05/11/24 History lisinopriL [Zestril] 20 mg PO DAILY 05/11/24 05/11/24 History metFORMIN HCL [Glucophage] 1,000 mg PO W/SUPPER 05/11/24 05/11/24 History Allergies Allergy/AdvReac Type Severity Reaction Status Date / Time No Known Allergies Allergy Verified 05/11/24 17:13 Physical Exam Vitals: Vital Signs Temp Pulse Pulse Resp BP BP Pulse Ox 05/12/24 08:57 98.1 F 82 18 130/73 100 05/12/24 06:26 87 18 115/63 97 05/12/24 01:00 83 18 114/62 05/11/24 22:00 87 18 120/67 96 05/11/24 20:04 98.4 F 73 18 123/73 96 05/11/24 15:11 73 18 113/60 96 05/11/24 14:24 71 18 109/57 97 05/11/24 13:42 79 18 92/56 97 Intake and Output 05/11/24 05/12/24 05/12/24 21:59 06:59 14:59 Output Total 900 Balance -900 Output: Urine 900 Post Void Residual Other: Voiding Method Toilet Urinal # Bowel Movements 0 GENERAL EXAM: Alert, pleasant 83-year-old male, on room air, fairly comfortable in no apparent distress. HEAD: Normocephalic. EYES: Normal reaction of pupils, equal size. NOSE: Clear with pink turbinates. THROAT: No erythema or exudates. NECK: No masses, no JVD. CHEST: No chest wall deformity. LUNGS: Equal air entry with no crackles, wheeze, rhonchi or dullness. CVS: S1 and S2 normal with no audible murmur, regular rhythm. ABDOMEN: No hepatosplenomegaly, normal bowel sounds, no guarding or rigidity. SPINE: No scoliosis or deformity SKIN: No rashes CENTRAL NERVOUS SYSTEM: No focal deficits, tone is normal in all 4 extremities. EXTREMITIES: There is no peripheral edema. No clubbing, no cyanosis. Peripheral pulses are intact. Results - Laboratory Findings CBC and BMP: 05/11/24 13:42 05/12/24 03:18 PT/INR, D-dimer PT 11.1 sec (10.0-12.5) 05/11/24 13:42 INR 1.0 (<1.2) 05/11/24 13:42 Abnormal lab findings: Abnormal Labs 05/11/24 05/11/24 05/11/24 13:42 13:42 13:42 WBC 24.1 H RBC 3.86 L Hgb 12.3 L MCV 101.1 H Neutrophils # 22.6 H Lymphocytes # 0.9 L APTT 21.1 L Chloride 96 L Carbon Dioxide 18 L BUN 50 H Creatinine 3.15 H Glucose 145 H POC Glucose (mg/dL) Plasma Lactic Acid Krishna Magnesium 2.4 H Urine Protein Urine Blood Amorphous Sediment Urine Bacteria Hyaline Casts Urine Mucus 05/11/24 05/11/24 05/11/24 13:42 14:50 18:10 WBC RBC Hgb MCV Neutrophils # Lymphocytes # APTT Chloride Carbon Dioxide BUN Creatinine Glucose POC Glucose (mg/dL) Plasma Lactic Acid Krishna 8.9 H* 8.4 H* 6.7 H* Magnesium Urine Protein Urine Blood Amorphous Sediment Urine Bacteria Hyaline Casts Urine Mucus 05/11/24 05/11/24 05/12/24 22:00 22:50 03:18 WBC RBC Hgb MCV Neutrophils # Lymphocytes # APTT Chloride Carbon Dioxide BUN Creatinine 2.50 H Glucose POC Glucose (mg/dL) Plasma Lactic Acid Krishna 3.9 H* Magnesium Urine Protein 1+ H Urine Blood Moderate H Amorphous Sediment Few H Urine Bacteria Occasional H Hyaline Casts 23 H Urine Mucus Rare H 05/12/24 05/12/24 03:18 12:08 WBC RBC Hgb MCV Neutrophils # Lymphocytes # APTT Chloride Carbon Dioxide BUN Creatinine Glucose POC Glucose (mg/dL) 115 H Plasma Lactic Acid Krishna 3.0 H* Magnesium Urine Protein Urine Blood Amorphous Sediment Urine Bacteria Hyaline Casts Urine Mucus - Diagnostic Findings Chest x-ray: image reviewed Assessment and Plan Assessment: Generalized weakness secondary to nausea, vomiting, diarrhea for [address] scan of the abdomen revealed a long segment wall thickening of the descending and sigmoid colon with surrounding mesenteric inflammation and liquid stool sug gesting infectious colitis. There is a small developing loculated fluid collection adjacent to the sigmoid colon measuring approximately 3.0 cm. No drainable abscess at this time. No significant free air/pneumoperitoneum Sepsis secondary to acute colitis Acute kidney injury secondary to dehydration Leukocytosis secondary to above Diabetes mellitus, type II Hyperlipidemia History of hypertension Plan: The patient was seen and evaluated Imaging, labs and medications reviewed Currently stable and on room air Blood pressure stable Received 2 L of fluid resuscitation Receiving lactated Ringer's at 130 mL/h Given vancomycin Continued on Zosyn Remains nothing by mouth Surgery consulted and recommending IR consult for drainage of abscess No need for ICU admission at this time DNR CODE STATUS We will continue to follow and make further recommendations based on his clinical status I have personally seen and examined the patient, performed the documentation and the assessment and plan as written. Number of minutes spent on the visit: 20 Dictation was produced using [employer] dictation software. Please excuse any grammatical, word or spelling errors.
[2024-05-12 16:36] LABS: Glucose,Whole Blood 102 mg/dL (70-110)
[2024-05-12 21:17] LABS: Glucose,Whole Blood 123 mg/dL (70-110)
[2024-05-12] MEDS: ATORVASTATIN 20 MG TAB PO SCH (22:31)
[2024-05-12] MEDS: LATANOPROST 0.005% OPHTH DROPS 2.5 ML BTL BOTH EYES SCH (22:31)
--- NOTE | 2024-05-12 23:08 | P.CONS ---
History of Present Illness - Reason for Consult Consult date: 05/12/24 Sepsis, colitis Requesting physician: Kade Epps - Chief Complaint Vomiting diarrhea x 2 days - History of Present Illness Patient is a 83-year-old male with a past medical history significant for diabetes mellitus hypertension PTSD presenting to the hospital for evaluation of vomiting and diarrhea patient mention her symptoms started Monday that is day before presentation to the hospital with multiple episode of vomiting subsequently did have multiple episodes of loose stools patient is attributing his symptoms started after he ate some kind of candy prior to that did not have significant abdominal pain patient denies high-grade fever and no history of any recent antibiotic exposure with the symptoms the patient was evaluated on presentation to hospital patient was afebrile and no fever have recorded subsequently patient was not tachycardic hypotensive or hypoxic no need for supplemental oxygen patient did have white count of 24.1 with a left shift did have elevated BUN and creatinine lactic acid was 3.9 repeat is 1.7 urine has been negative influenza RSV COVID testing negative patient did have abdominal pelvis CT long segment wall thickening of the descending sigmoid colon with surrounding mesenteric inflammation and liquid stool suggesting infectious colitis and there was a small developing loculated fluid collection adjacent to the sigmoid colon measuring 3 cm patient has been started on Zosyn infectious disease was consulted for further management of antibiotic therapy Review of Systems Positive point and negatives has been mentioned in the HPI, complete review of systems was performed and all other systems are negative Past Medical History Past Medical History: Diabetes Mellitus, Hypertension History of Any Multi-Drug Resistant Organisms: None Reported Additional Past Surgical History / Comment(s): left eye surgery 2022 Past Psychological History: PTSD Smoking Status: Former smoker Past Alcohol Use History: None Reported Past Drug Use History: None Reported - Past Family History Father Family Medical History: Coronary Artery Disease (CAD) Medications and Allergies Home Medications Medication Instructions Recorded Confirmed Type Aspirin EC [Ecotrin Low Dose] 81 mg PO DAILY 05/11/24 05/11/24 History Atorvastatin [Lipitor] 20 mg PO HS 05/11/24 05/11/24 History Latanoprost [Latanoprost 0.005%] 1 drop BOTH EYES HS 05/11/24 05/11/24 History Loratadine 10 mg PO DAILY 05/11/24 05/11/24 History Timolol 0.25% Ophth Soln [Timoptic 1 drop BOTH EYES DAILY 05/11/24 05/11/24 History 0.25% Ophth Soln] hydroCHLOROthiazide [Hydrodiuril] 25 mg PO DAILY 05/11/24 05/11/24 History lisinopriL [Zestril] 20 mg PO DAILY 05/11/24 05/11/24 History metFORMIN HCL [Glucophage] 1,000 mg PO W/SUPPER 05/11/24 05/11/24 History Allergies Allergy/AdvReac Type Severity Reaction Status Date / Time No Known Allergies Allergy Verified 05/11/24 17:13 Physical Exam Vitals: Vital Signs Temp Pulse Pulse Resp BP BP Pulse Ox 05/12/24 08:57 98.1 F 82 18 130/73 100 05/12/24 06:26 87 18 115/63 97 05/12/24 01:00 83 18 114/62 05/11/24 22:00 87 18 120/67 96 05/11/24 20:04 98.4 F 73 18 123/73 96 05/11/24 15:11 73 18 113/60 96 05/11/24 14:24 71 18 109/57 97 05/11/24 13:42 79 18 92/56 97 05/11/24 12:33 98.2 F 73 18 109/54 97 Intake and Output 05/11/24 05/12/24 05/12/24 21:59 06:59 14:59 Output Total 900 Balance -900 Output: Urine 900 Post Void Residual Other: Voiding Method Toilet Urinal # Bowel Movements 0 GENERAL DESCRIPTION: Elderly male lying in bed, no distress. No tachypnea or accessory muscle of respiration use. HEENT: Shows Pallor , no scleral icterus. Oral mucous membrane is dry. No pharyngeal erythema or thrush NECK: Trachea central, no thyromegaly. LUNGS: Unlabored breathing. Clear to auscultation anteriorly. No wheeze or crackle. HEART: S1, S2, regular rate and rhythm. No loud murmur ABDOMEN: Soft, mild tenderness , no guarding or rigidity, no organomegaly EXTREMITIES: No edema of feet. SKIN: No rash, no masses palpable. NEUROLOGICAL: The patient is awake, alert, oriented x3, mood and affect normal. Results CBC & Chem 7: 05/13/24 09:57 05/13/24 09:57 Labs: Abnormal Lab Results - Last 24 Hours (Table) 05/11/24 05/11/24 05/11/24 Range/Units 13:42 13:42 13:42 WBC 24.1 H (3.8-10.6) k/uL RBC 3.86 L (4.30-5.90) m/uL Hgb 12.3 L (13.0-17.5) gm/dL MCV 101.1 H (80.0-100.0) fL Neutrophils # 22.6 H (1.3-7.7) k/uL Lymphocytes # 0.9 L (1.0-4.8) k/uL APTT 21.1 L (22.0-30.0) sec Chloride 96 L (98-107) mmol/L Carbon Dioxide 18 L (22-30) mmol/L BUN 50 H (9-20) mg/dL Creatinine 3.15 H (0.66-1.25) mg/dL Glucose 145 H (74-99) mg/dL POC Glucose (mg/dL) (70-110) mg/dL Plasma Lactic Acid Krishna (0.7-2.0) mmol/L Magnesium 2.4 H (1.6-2.3) mg/dL Urine Protein (Negative) Urine Blood (Negative) Amorphous Sediment (None) /hpf Urine Bacteria (None) /hpf Hyaline Casts (0-2) /lpf Urine Mucus (None) /hpf 05/11/24 05/11/24 05/11/24 Range/Units 13:42 14:50 18:10 WBC (3.8-10.6) k/uL RBC (4.30-5.90) m/uL Hgb (13.0-17.5) gm/dL MCV (80.0-100.0) fL Neutrophils # (1.3-7.7) k/uL Lymphocytes # (1.0-4.8) k/uL APTT (22.0-30.0) sec Chloride (98-107) mmol/L Carbon Dioxide (22-30) mmol/L BUN (9-20) mg/dL Creatinine (0.66-1.25) mg/dL Glucose (74-99) mg/dL POC Glucose (mg/dL) (70-110) mg/dL Plasma Lactic Acid Krishna 8.9 H* 8.4 H* 6.7 H* (0.7-2.0) mmol/L Magnesium (1.6-2.3) mg/dL Urine Protein (Negative) Urine Blood (Negative) Amorphous Sediment (None) /hpf Urine Bacteria (None) /hpf Hyaline Casts (0-2) /lpf Urine Mucus (None) /hpf 05/11/24 05/11/24 05/12/24 Range/Units 22:00 22:50 03:18 WBC (3.8-10.6) k/uL RBC (4.30-5.90) m/uL Hgb (13.0-17.5) gm/dL MCV (80.0-100.0) fL Neutrophils # (1.3-7.7) k/uL Lymphocytes # (1.0-4.8) k/uL APTT (22.0-30.0) sec Chloride (98-107) mmol/L Carbon Dioxide (22-30) mmol/L BUN (9-20) mg/dL Creatinine 2.50 H (0.66-1.25) mg/dL Glucose (74-99) mg/dL POC Glucose (mg/dL) (70-110) mg/dL Plasma Lactic Acid Krishna 3.9 H* (0.7-2.0) mmol/L Magnesium (1.6-2.3) mg/dL Urine Protein 1+ H (Negative) Urine Blood Moderate H (Negative) Amorphous Sediment Few H (None) /hpf Urine Bacteria Occasional H (None) /hpf Hyaline Casts 23 H (0-2) /lpf Urine Mucus Rare H (None) /hpf 05/12/24 05/12/24 Range/Units 03:18 12:08 WBC (3.8-10.6) k/uL RBC (4.30-5.90) m/uL Hgb (13.0-17.5) gm/dL MCV (80.0-100.0) fL Neutrophils # (1.3-7.7) k/uL Lymphocytes # (1.0-4.8) k/uL APTT (22.0-30.0) sec Chloride (98-107) mmol/L Carbon Dioxide (22-30) mmol/L BUN (9-20) mg/dL Creatinine (0.66-1.25) mg/dL Glucose (74-99) mg/dL POC Glucose (mg/dL) 115 H (70-110) mg/dL Plasma Lactic Acid Krishna 3.0 H* (0.7-2.0) mmol/L Magnesium (1.6-2.3) mg/dL Urine Protein (Negative) Urine Blood (Negative) Amorphous Sediment (None) /hpf Urine Bacteria (None) /hpf Hyaline Casts (0-2) /lpf Urine Mucus (None) /hpf Assessment and Plan (1) Colitis Current Visit: Yes Status: Acute Code(s): K52.9 - NONINFECTIVE GASTROENTERITIS AND COLITIS, UNSPECIFIED SNOMED Code(s): 64383865 (2) Leukocytosis Current Visit: Yes Status: Acute Code(s): D72.829 - ELEVATED WHITE BLOOD CELL COUNT, UNSPECIFIED SNOMED Code(s): 116206961 (3) Abscess Current Visit: Yes Status: Acute Code(s): L02.91 - CUTANEOUS ABSCESS, UNSPECIFIED SNOMED Code(s): 316997367 (4) Sepsis Current Visit: Yes Status: Acute Code(s): A41.9 - SEPSIS, UNSPECIFIED ORGANISM SNOMED Code(s): 67813275 Plan: 1patient presenting to the hospital with acute nausea vomiting and diarrhea in this patient did have significantly evaded white count elevated lactic acid with evidence of diffuse colitis involving the descending sigmoid colon and there was also mention of some loculated fluid collection with a question of possible peridiverticular abscess and will need to cover for enteric gram-negative both aerobes and anaerobes 2-we will check a stool for C. difficile and stool culture and follow-up on the blood cultures await IR drainage of the fluid collection being requested by the general surgery 3-we will treat empirically with Zosyn while waiting for the workup to be completed We will follow on clinical condition and cultures to further adjust medication if needed Thank you for this consultation we will follow the patient along with you Dictation was produced using [employer] software. please excuse any grammatical, word or spelling errors. Time with Patient: Greater than 30
[2024-05-13 06:10] LABS: Glucose,Whole Blood 118 mg/dL (70-110)
[2024-05-13 08:09] LABS: African American GFR (CKD) 36 (>60 ml/min/1.73 sqM); Non-African American GFR(CKD) 31 (>60 ml/min/1.73 sqM)
[2024-05-13] MEDS: LORATADINE 10 MG TAB PO SCH (08:13)
[2024-05-13] MEDS: TIMOLOL 0.25% OPHTH DROPS 5 ML BTL BOTH EYES SCH (08:13)
[2024-05-13 10:32] LABS: Basophils % (A) 0 %; Eosinophils # (A) 0.1 k/uL (0-0.7); Eosinophils % (A) 1 %; HCT 32.1 % (39.0-53.0); HGB 10.2 gm/dL (13.0-17.5); Lymphocytes # (A) 1.2 k/uL (1.0-4.8); Lymphocytes % (A) 10 %; MCH 31.7 pg (25.0-35.0); MCHC 31.8 g/dL (31.0-37.0); MCV 99.6 fL (80.0-100.0); Mean Platelet Volume 8.7; Monocytes # (A) 0.3 k/uL (0-1.0); Monocytes % (A) 3 %; Neutrophils # (A) 10.3 k/uL (1.3-7.7); Neutrophils % (A) 86 %; Platelet Count 190 k/uL (150-450); RBC 3.23 m/uL (4.30-5.90)
[2024-05-13 10:53] LABS: ALT 17 U/L (4-49); AST 39 U/L (17-59); African American GFR (CKD) 37 (>60 ml/min/1.73 sqM); Albumin 3.5 g/dL (3.5-5.0); Albumin/Globulin Ratio 1.3; Alkaline Phosphatase 46 U/L (38-126); Anion Gap 7 mmol/L; Blood Urea Nitrogen 39 mg/dL (9-20); Calcium 8.8 mg/dL (8.4-10.2); Carbon Dioxide 26 mmol/L (22-30); Chloride 103 mmol/L (98-107); Globulin 2.6 g/dL; Glucose 99 mg/dL (74-99); Non-African American GFR(CKD) 32 (>60 ml/min/1.73 sqM); Potassium 3.9 mmol/L (3.5-5.1); Sodium 136 mmol/L (137-145); Total Bilirubin 1.2 mg/dL (0.2-1.3); Total Protein 6.1 g/dL (6.3-8.2)
--- NOTE | 2024-05-13 11:30 | P.PN ---
Subjective Patient is seen in follow-up for acute kidney injury on chronic kidney disease. Renal function stable. Tolerating oral intake. No vomiting or diarrhea. Vital signs are stable. General: No acute distress. HEENT: Head exam is unremarkable. LUNGS: No audible rhonchi or wheezes. HEART: Rate and Rhythm are regular. ABDOMEN: Nontender. EXTREMITITES: Trace edema. Objective - Vital Signs Vital signs: Vital Signs Temp 98.9 F 05/13/24 06:59 Pulse 87 05/13/24 08:13 Resp 19 05/13/24 08:13 BP 120/74 05/13/24 06:59 Pulse Ox 94 L 05/13/24 06:59 FiO2 Intake & Output 05/12/24 05/13/24 05/13/24 18:59 06:59 18:59 Intake Total 1650 Output Total 1250 2150 Balance -1250 -500 Weight 96.162 kg Intake: Oral 1650 Output: Urine 1250 2150 Other: Voiding Method Urinal Urinal # Voids 2 # Bowel Movements 1 2 - Labs CBC & Chem 7: 05/13/24 09:57 05/13/24 09:57 Labs: Abnormal Lab Results - Last 24 Hours (Table) 05/12/24 05/12/24 05/12/24 Range/Units 03:18 12:08 21:16 WBC (3.8-10.6) k/uL RBC (4.30-5.90) m/uL Hgb (13.0-17.5) gm/dL Hct (39.0-53.0) % Neutrophils # (1.3-7.7) k/uL Sodium (137-145) mmol/L BUN (9-20) mg/dL Creatinine (0.66-1.25) mg/dL POC Glucose (mg/dL) 115 H 123 H (70-110) mg/dL Hemoglobin A1c (<=6.0) % Total Protein (6.3-8.2) g/dL Procalcitonin 65.40 H (0.02-0.50) ng/mL 05/13/24 05/13/24 05/13/24 Range/Units 06:08 06:09 06:09 WBC (3.8-10.6) k/uL RBC (4.30-5.90) m/uL Hgb (13.0-17.5) gm/dL Hct (39.0-53.0) % Neutrophils # (1.3-7.7) k/uL Sodium (137-145) mmol/L BUN (9-20) mg/dL Creatinine 1.97 H (0.66-1.25) mg/dL POC Glucose (mg/dL) 118 H (70-110) mg/dL Hemoglobin A1c 6.3 H (<=6.0) % Total Protein (6.3-8.2) g/dL Procalcitonin (0.02-0.50) ng/mL 05/13/24 05/13/24 Range/Units 09:57 09:57 WBC 12.0 H (3.8-10.6) k/uL RBC 3.23 L (4.30-5.90) m/uL Hgb 10.2 L (13.0-17.5) gm/dL Hct 32.1 L (39.0-53.0) % Neutrophils # 10.3 H (1.3-7.7) k/uL Sodium 136 L (137-145) mmol/L BUN 39 H (9-20) mg/dL Creatinine 1.94 H (0.66-1.25) mg/dL POC Glucose (mg/dL) (70-110) mg/dL Hemoglobin A1c (<=6.0) % Total Protein 6.1 L (6.3-8.2) g/dL Procalcitonin (0.02-0.50) ng/mL Microbiology - Last 24 Hours (Table) 05/11/24 14:50 Blood Culture - Preliminary Blood Assessment and Plan Plan: Assessment: 1. Acute kidney injury secondary to vasomotor nephropathy secondary to hypovolemia and further worsen with the use of diuretic. Creatinine 3.1 on admission and stable at 1.9 today. No hydronephrosis noted on CAT scan. 2. Chronic kidney disease stage IIIb with baseline creatinine near 1.5 secondary to nephrosclerosis. 3. Severe sepsis secondary to colitis on antibiotics. 4. Metabolic acidosis secondary to acute kidney injury, lactic acidosis, IV fluids and GI losses. Improved. Plan: Decrease rate of IV fluids to 50 cc an hour. Avoid nephrotoxins. Follow-up outpatient 1 to 2 weeks postdischarge.
[2024-05-13 11:41] LABS: Glucose,Whole Blood 96 mg/dL (70-110)
--- NOTE | 2024-05-13 14:03 | P.PN ---
Subjective Progress Note Date: 05/13/24 patient is a 83-year-old gentleman with past medical history significant for hypertension, diabetes mellitus, hyperlipidemia who presented to the ER because of vomiting and diarrhea. Was brought in by family according to them patient is sick for the last couple of days. Patient has been having multiple episodes of diarrhea and vomiting. Vomiting is projectile, no evidence of any blood in it. Patient having multiple bouts of loose stools with no evidence of any blood in it. Patient also complains denies abdominal pain which is cramping in nature involving the whole abdomen. Patient's girlfriend is also been sick. There is no complaint of fever or chills. There is no complaint of chest pain or shortness of breath. Patient was complaining of lethargic and weakness. Patient has not been eating and drinking enough and was complaining of being thirsty. Because of the symptoms, patient brought to the ER Initial lab work done in the ER showed WBC 24.1, hemoglobin 12.3, platelet count 226, sodium 137, potassium 4.4, BUN 50, creatinine 3.15, glucose 145, lactate 8.9 magnesium 2.4 AST 30, ALT 27, Influenza A not detected Influenza B not detected RSV not detected COVID-19 not detected EKG done in the ER showed heart rate of 73 , no ST segment elevation or depression seen, no T-wave inversions seen. Chest x-ray done in the ER showed no acute cardiopulmonary process CT abdomen and pelvis done showed long segment wall thickening of the ascending and sigmoid colon with surrounding mesenteric inflammation and liquid stool suggesting infectious colitis. Additionally there is a small developing lobulated fluid collection adjacent to the sigmoid colon measuring approximately 3 cm, no drainable abscess at this time. Patient admitted to internal medicine service 05/13. Patient seen and examined. States he feels much better. State he wants to go home today. Discussed with him regarding need for him to stay in the hospital for further treatment. REVIEW OF SYSTEMS: CONSTITUTIONAL: No fever, no malaise,. CARDIOVASCULAR: No chest pain, no palpitations, no syncope. PULMONARY: No shortness of breath, no cough, GASTROINTESTINAL: No diarrhea, no nausea, no vomiting, no abdominal pain. NEUROLOGICAL: No headaches, no weakness, PHYSICAL EXAMINATION: GENERAL: The patient is alert and oriented x3, not in any acute distress. Well developed, well nourished. HEENT: Pupils are round and equally reacting to light. EOMI. No scleral icterus. No conjunctival pallor. Normocephalic, atraumatic. No pharyngeal erythema. No thyromegaly. CARDIOVASCULAR: S1 and S2 present. No murmurs, rubs, or gallops. PULMONARY: Chest is clear to auscultation, no wheezing or crackles. ABDOMEN: Soft, nontender, nondistended, normoactive bowel sounds. No palpable organomegaly. MUSCULOSKELETAL: No joint swelling or deformity. EXTREMITIES: No cyanosis, clubbing, or pedal edema. NEUROLOGICAL: Gross neurological examination did not reveal any focal deficits. SKIN: No rashes. Assessment and plan Severe sepsis Lactic acidosis Acute colitis involving descending and sigmoid colon with fluid collection adjacent to sigmoid colon measuring 3 cm Acute kidney injury Metabolic acidosis Abdominal pain History of hypertension History of hyperlipidemia History of diabetes mellitus Monitor vital signs Monitor CBC Monitor CMP Continue telemetry monitoring Follow-up on blood cultures stool for C. difficile negative Continue IV Zosyn Continue IV fluids Strict I's and O's, daily weights Avoid nephrotoxic agents Avoid hypotension Hold lisinopril and HCTZ Nephrology following General Surgery evaluated, consulted IR for drainage ID following Labs and medication were reviewed.. Continue same treatment. Continue with symptomatic treatment. Resume home medication. Monitor labs and vitals. DVT and GI prophylaxis. Further recommendations as per clinical course of the patient Dictation was produced using [employer] dictation software. please excuse any grammatical, word or spelling errors. Objective - Vital Signs Vital signs: Vital Signs Temp 98.9 F 05/13/24 06:59 Pulse 68 05/13/24 06:59 Resp 19 05/13/24 06:59 BP 120/74 05/13/24 06:59 Pulse Ox 94 L 05/13/24 06:59 FiO2 Intake & Output 05/12/24 05/13/24 05/13/24 18:59 06:59 18:59 Intake Total 1650 Output Total 1250 2150 Balance -1250 -500 Weight 96.162 kg Intake: Oral 1650 Output: Urine 1250 2150 Other: Voiding Method Urinal Urinal # Voids 2 # Bowel Movements 1 2 - Labs CBC & Chem 7: 05/13/24 09:57 05/13/24 09:57 Labs: Abnormal Lab Results - Last 24 Hours (Table) 05/12/24 05/12/24 05/12/24 Range/Units 03:18 12:08 21:16 Creatinine (0.66-1.25) mg/dL POC Glucose (mg/dL) 115 H 123 H (70-110) mg/dL Procalcitonin 65.40 H (0.02-0.50) ng/mL 05/13/24 05/13/24 Range/Units 06:08 06:09 Creatinine 1.97 H (0.66-1.25) mg/dL POC Glucose (mg/dL) 118 H (70-110) mg/dL Procalcitonin (0.02-0.50) ng/mL Microbiology - Last 24 Hours (Table) 05/11/24 14:50 Blood Culture - Preliminary Blood
--- NOTE | 2024-05-13 15:12 | P.PN ---
Subjective Progress Note Date: 05/13/24 Principal diagnosis: Reason for follow-up is colitis/possible abscess Patient is a 83-year-old male with a past medical history significant for diabetes mellitus hypertension PTSD presenting to the hospital for evaluation of vomiting and diarrhea, patient did have elevated white count CT abdominal pelvis did shows long segment thickening of the descending and sigmoid colon with loculated fluid collection probably this consultation. On today's evaluation that is 05/13/2024, patient has been afebrile, patient is breathing comfortably and is currently on room air, patient denies having any significant cough no chest pain, patient denies nausea vomiting or diarrhea and no abdominal pain, feeling better. Patient white count is down to 12,000, creatinine is 1.94 blood cultures are pending Objective - Vital Signs Vital signs: Vital Signs Temp 97.6 F 05/13/24 14:04 Pulse 72 05/13/24 14:04 Resp 19 05/13/24 14:04 BP 154/81 05/13/24 14:04 Pulse Ox 96 05/13/24 14:04 FiO2 Intake & Output 05/12/24 05/13/24 05/13/24 18:59 06:59 18:59 Intake Total 1650 Output Total 1250 2150 Balance -1250 -500 Weight 96.162 kg Intake: Oral 1650 Output: Urine 1250 2150 Other: Voiding Method Urinal Urinal # Voids 2 # Bowel Movements 1 2 - Exam GENERAL DESCRIPTION: An elderly male lying in bed in no distress RESPIRATORY SYSTEM: Unlabored breathing , decreased breath sounds at bases HEART: S1 S2 regular rate and rhythm , ABDOMEN: Soft , no tenderness EXTREMITIES: No edema feet - Labs CBC & Chem 7: 05/13/24 09:57 05/13/24 09:57 Labs: Abnormal Lab Results - Last 24 Hours (Table) 05/12/24 05/12/24 05/13/24 Range/Units 11:04 21:16 06:08 WBC (3.8-10.6) k/uL RBC (4.30-5.90) m/uL Hgb (13.0-17.5) gm/dL Hct (39.0-53.0) % Neutrophils # (1.3-7.7) k/uL Sodium (137-145) mmol/L BUN (9-20) mg/dL Creatinine (0.66-1.25) mg/dL POC Glucose (mg/dL) 123 H 118 H (70-110) mg/dL Hemoglobin A1c (<=6.0) % Total Protein (6.3-8.2) g/dL Urine Osmolality 363 L (400-1100) mOsm/kg 05/13/24 05/13/24 05/13/24 Range/Units 06:09 06:09 09:57 WBC 12.0 H (3.8-10.6) k/uL RBC 3.23 L (4.30-5.90) m/uL Hgb 10.2 L (13.0-17.5) gm/dL Hct 32.1 L (39.0-53.0) % Neutrophils # 10.3 H (1.3-7.7) k/uL Sodium (137-145) mmol/L BUN (9-20) mg/dL Creatinine 1.97 H (0.66-1.25) mg/dL POC Glucose (mg/dL) (70-110) mg/dL Hemoglobin A1c 6.3 H (<=6.0) % Total Protein (6.3-8.2) g/dL Urine Osmolality (400-1100) mOsm/kg 05/13/24 Range/Units 09:57 WBC (3.8-10.6) k/uL RBC (4.30-5.90) m/uL Hgb (13.0-17.5) gm/dL Hct (39.0-53.0) % Neutrophils # (1.3-7.7) k/uL Sodium 136 L (137-145) mmol/L BUN 39 H (9-20) mg/dL Creatinine 1.94 H (0.66-1.25) mg/dL POC Glucose (mg/dL) (70-110) mg/dL Hemoglobin A1c (<=6.0) % Total Protein 6.1 L (6.3-8.2) g/dL Urine Osmolality (400-1100) mOsm/kg Microbiology - Last 24 Hours (Table) 05/11/24 14:50 Blood Culture - Preliminary Blood Assessment and Plan (1) Colitis Current Visit: Yes Status: Acute Code(s): K52.9 - NONINFECTIVE GA STROENTERITIS AND COLITIS, UNSPECIFIED SNOMED Code(s): 33034423 (2) Leukocytosis Current Visit: Yes Status: Acute Code(s): D72.829 - ELEVATED WHITE BLOOD CELL COUNT, UNSPECIFIED SNOMED Code(s): 363210359 (3) Abscess Current Visit: Yes Status: Acute Code(s): L02.91 - CUTANEOUS ABSCESS, UNSPECIFIED SNOMED Code(s): 103305858 (4) Sepsis Current Visit: Yes Status: Acute Code(s): A41.9 - SEPSIS, UNSPECIFIED ORGANISM SNOMED Code(s): 87858689 Plan: 1patient presenting to the hospital with acute nausea vomiting and diarrhea in this patient did have significantly evaded white count elevated lactic acid with evidence of diffuse colitis involving the descending sigmoid colon and there was also mention of some loculated fluid collection with a question of possible peridiverticular abscess and will need to cover for enteric gram-negative both aerobes and anaerobes 2-stool for C. difficile negative, stool culture and blood cultures are currently pending 3-patient seem to have responded to Zosyn to continue while waiting for the workup to be completed Question concern answered Dictation was produced using [employer] dictation software. please excuse any grammatical, word or spelling errors.
--- NOTE | 2024-05-13 16:00 | P.PN ---
Progress Note - Text Progress Note Date: 05/13/24 No acute events overnight. Patient is feeling better today. He states he is passing gas. Denies fevers and chills. Denies nausea and vomiting. Abdominal pain is better today than it was yesterday. Tolerating CLD. WBC is trending down. IR evaluated CT-AP and said that they can not drain the abscess at this time. General: Appears in mild distress. HEAD: Normal with no signs of head trauma. EYES: PERRLA, EOMI, conjunctiva normal, no discharge. Pupils are 3 mm and equal bilaterally. ENT: Hearing grossly intact, normal oropharynx. Dry mucous membranes. RESPIRATORY: Clear breath sounds bilaterally. No wheezes, rales, or rhonchi. C/V: Regular rate and rhythm. S1 and S2 auscultated, no edema, peripheral pulses 2+ and intact throughout ABD: Abdomen soft, nondistended. Mildly tender to palpation across the lower quadrants. No guarding or rebound tenderness. No peritoneal signs. EXT: Normal range of motion, no obvious deformity SKIN: No rashes or lesions observed on exposed skin. NEURO: Alert and oriented x 4. No focal deficits. 83 year old male with abdominal pain, vomiting, and diarrhea. CT-AP shows descending/sigmoid colitis with associated abscess -Advanced to Full Liquid Diet -IV fluids -Zosyn -IR unable to drain abscess at this time. Requesting CT-AP be repeated with contrast when Creatinine improves. -Nausea and Pain Control -Serial Abdominal Exams -Patient has never had a colonoscopy. I explained to him he should have colonoscopy in 4-6 weeks. However patient refusing at this time. -AM labs Robles Lassiter DO [facility] [phone]
--- NOTE | 2024-05-13 16:40 | P.PN ---
Subjective Progress Note Date: 05/13/24 On today's evaluation of 05/13/2024, the patient is feeling better compared to yesterday. Abdominal pain is subsided significantly. He is taking some clear liquid diet. No significant abdominal pain. No nausea. No emesis. The white cell count is dropped down to 12 with a hemoglobin 10.2. His creatinine is also improved and was down to 1.9 from a baseline of 3.15. Sodium levels at 136 with a potassium level of 3.9. Serum bicarb is at 26. His procalcitonin level was 65.4. The blood cultures been negative. The patient was seen by general surgery and a CAT scan of the abdomen and pelvis that was done on 05/11/2024 showed evidence of colitis with long segment wall thickening of the descending and sigmoid colon with surrounding mesenteric inflammation. There is also a small developing loculated fluid collection adjacent to the sigmoid colon measuring 3 cm. No drainable abscess at this point in time. The patient is currently on room air oxygen. Able to communicate. He denies having any specific complaints. General surgery is on the case and the plan is to treat this patient medically and gradually transfers diet as tolerated. He remains on IV fluids. He remains on IV Zosyn. Nausea is controlled. Objective - Vital Signs Vital signs: Vital Signs Temp 98.9 F 05/13/24 06:59 Pulse 87 05/13/24 08:13 Resp 19 05/13/24 08:13 BP 120/74 05/13/24 06:59 Pulse Ox 94 L 05/13/24 06:59 FiO2 Intake & Output 05/12/24 05/13/24 05/13/24 18:59 06:59 18:59 Intake Total 1650 Output Total 1250 2150 Balance -1250 -500 Weight 96.162 kg Intake: Oral 1650 Output: Urine 1250 2150 Other: Voiding Method Urinal Urinal # Voids 2 # Bowel Movements 1 2 - Exam GENERAL EXAM: Alert, pleasant 83-year-old male, on room air, fairly comfortable in no apparent distress. HEAD: Normocephalic. EYES: Normal reaction of pupils, equal size. NOSE: Clear with pink turbinates. THROAT: No erythema or exudates. NECK: No masses, no JVD. CHEST: No chest wall deformity. LUNGS: Equal air entry with no crackles, wheeze, rhonchi or dullness. CVS: S1 and S2 normal with no audible murmur, regular rhythm. ABDOMEN: No hepatosplenomegaly, normal bowel sounds, no guarding or rigidity. SPINE: No scoliosis or deformity SKIN: No rashes CENTRAL NERVOUS SYSTEM: No focal deficits, tone is normal in all 4 extremities. EXTREMITIES: There is no peripheral edema. No clubbing, no cyanosis. Peripheral pulses are intact. - Labs CBC & Chem 7: 05/13/24 09:57 05/13/24 09:57 Labs: Abnormal Lab Results - Last 24 Hours (Table) 05/12/24 05/12/24 05/12/24 Range/Units 03:18 11:04 21:16 WBC (3.8-10.6) k/uL RBC (4.30-5.90) m/uL Hgb (13.0-17.5) gm/dL Hct (39.0-53.0) % Neutrophils # (1.3-7.7) k/uL Sodium (137-145) mmol/L BUN (9-20) mg/dL Creatinine (0.66-1.25) mg/dL POC Glucose (mg/dL) 123 H (70-110) mg/dL Hemoglobin A1c (<=6.0) % Total Protein (6.3-8.2) g/dL Procalcitonin 65.40 H (0.02-0.50) ng/mL Urine Osmolality 363 L (400-1100) mOsm/kg 05/13/24 05/13/24 05/13/24 Range/Units 06:08 06:09 06:09 WBC (3.8-10.6) k/uL RBC (4.30-5.90) m/uL Hgb (13.0-17.5) gm/dL Hct (39.0-53.0) % Neutrophils # (1.3-7.7) k/uL Sodium (137-145) mmol/L BUN (9-20) mg/dL Creatinine 1.97 H (0.66-1.25) mg/dL POC Glucose (mg/dL) 118 H (70-110) mg/dL Hemoglobin A1c 6.3 H (<=6.0) % Total Protein (6.3-8.2) g/dL Procalcitonin (0.02-0.50) ng/mL Urine Osmolality (400-1100) mOsm/kg 05/13/24 05/13/24 Range/Units 09:57 09:57 WBC 12.0 H (3.8-10.6) k/uL RBC 3.23 L (4.30-5.90) m/uL Hgb 10.2 L (13.0-17.5) gm/dL Hct 32.1 L (39.0-53.0) % Neutrophils # 10.3 H (1.3-7.7) k/uL Sodium 136 L (137-145) mmol/L BUN 39 H (9-20) mg/dL Creatinine 1.94 H (0.66-1.25) mg/dL POC Glucose (mg/dL) (70-110) mg/dL Hemoglobin A1c (<=6.0) % Total Protein 6.1 L (6.3-8.2) g/dL Procalcitonin (0.02-0.50) ng/mL Urine Osmolality (400-1100) mOsm/kg Microbiology - Last 24 Hours (Table) 05/11/24 14:50 Blood Culture - Preliminary Blood Assessment and Plan Plan: Colitis descending and sigmoid, currently on IV Zosyn. Abdominal pain is subsided and the patient is being advanced and is currently on clear liquid diet. Elevated procalcitonin level, likely secondary to sepsis/colitis Generalized weakness secondary to nausea, vomiting, diarrhea for [address] scan of the abdomen revealed a long segment wall thickening of the descending and sigmoid colon with surrounding mesenteric inflammation and liquid stool suggesting infectious colitis. There is a small developing loculated fluid collection adjacent to the sigmoid colon measuring approximately 3.0 cm. No drainable abscess at this time. No significant free air/pneumoperitoneum Sepsis secondary to acute colitis, improving Acute kidney injury secondary to dehydration, improving Leukocytosis secondary to above, improving Diabetes mellitus, type II Hyperlipidemia History of hypertension Plan: Hemodynamically stable Currently stable and on room air Blood pressure stable Continue IV fluids and the patient is currently on lactated Ringer at rate of 50 cc an hour Continued on Zosyn Clear liquid diet Surgery consulted and recommending IR consult for drainage of abscess, no drainable abscess at this point in time No need for ICU admission at this time DNR CODE STATUS We will continue to follow and make further recommendations based on his clinical status
[2024-05-13 16:46] LABS: Glucose,Whole Blood 99 mg/dL (70-110)
[2024-05-13] MEDS: PIPERACILLIN-TAZOBACTAM 3.375 GM in SODIUM CHLORIDE 0.9% 100 ML IVPB SCH (17:00)
[2024-05-13 20:36] LABS: Glucose,Whole Blood 157 mg/dL (70-110)
[2024-05-14 06:04] LABS: Glucose,Whole Blood 106 mg/dL (70-110)
[2024-05-14 08:53] LABS: Basophils # (A) 0.03 X 10*3/uL (0.00-0.10); Basophils % (A) 0.3 %; Eosinophils # (A) 0.15 X 10*3/uL (0.04-0.35); Eosinophils % (A) 1.5 %; HCT 30.7 % (39.6-50.0); HGB 10.4 g/dL (13.0-17.0); Lymphocytes # (A) 1.45 X 10*3/uL (0.90-5.00); Lymphocytes % (A) 14.1 %; MCH 32.5 pg (27.0-32.0); MCHC 33.9 g/dL (32.0-37.0); MCV 95.9 FL (80.0-97.0); Mean Platelet Volume 11.2 FL (9.5-12.2); Monocytes # (A) 0.51 X 10*3/uL (0.20-1.00); NRBC Per 100 WBC 0 X 10*3/uL (0.00-0.01); Neutrophils % (A) 78.7 %; Platelet Count 185 X 10*3/uL (140-440); RDW 13.2 % (11.5-14.5); WBC 10.28 X 10*3/uL (4.50-10.00)
[2024-05-14 09:07] LABS: ALT 17 U/L (10-49); AST 36 U/L (14-35); Albumin 3.5 g/dL (3.8-4.9); Alkaline Phosphatase 48 U/L (41-126); Blood Urea Nitrogen 25.6 mg/dL (9.0-27.0); Calcium 8.8 mg/dL (8.7-10.3); Carbon Dioxide 23.2 mmol/L (21.6-31.8); Chloride 105 mmol/L (96-109); Globulin 2.5 g/dL (1.6-3.3); Glucose 94 mg/dL (70-110); Magnesium 1.8 mg/dL (1.5-2.4); Potassium 3.6 mmol/L (3.5-5.5); Sodium 142 mmol/L (135-145); Total Bilirubin 0.9 mg/dL (0.3-1.2)
[2024-05-14 11:32] LABS: Glucose,Whole Blood 116 mg/dL (70-110)
--- NOTE | 2024-05-14 12:13 | P.PN ---
Subjective Patient is seen in follow-up for acute kidney injury on chronic kidney disease. Renal function better. Tolerating oral intake. Having loose bowel movements. Vital signs are stable. General: No acute distress. HEENT: Head exam is unremarkable. LUNGS: No audible rhonchi or wheezes. HEART: Rate and Rhythm are regular. ABDOMEN: Nontender. EXTREMITITES: Trace edema. Objective - Vital Signs Vital signs: Vital Signs Temp 98.4 F 05/14/24 06:55 Pulse 66 05/14/24 08:13 Resp 18 05/14/24 08:13 BP 157/85 05/14/24 06:55 Pulse Ox 97 05/14/24 06:55 FiO2 Intake & Output 05/13/24 05/14/24 05/14/24 18:59 06:59 18:59 Other: Voiding Method Toilet Toilet # Voids 4 1 # Bowel Movements 3 1 - Labs CBC & Chem 7: 05/14/24 03:03 05/14/24 03:03 Labs: Abnormal Lab Results - Last 24 Hours (Table) 05/13/24 05/14/24 05/14/24 Range/Units 20:35 03:03 03:03 WBC 10.28 H (4.50-10.00) X 10*3/uL RBC 3.20 L (4.40-5.60) X 10*6/uL Hgb 10.4 L (13.0-17.0) g/dL Hct 30.7 L (39.6-50.0) % MCH 32.5 H (27.0-32.0) pg Neutrophils # 8.10 H (1.80-7.70) X 10*3/uL Anion Gap 13.80 H (4.00-12.00) mmol/L Creatinine 1.6 H (0.6-1.5) mg/dL Est GFR (CKD-EPI) 43 L (>=60) POC Glucose (mg/dL) 157 H (70-110) mg/dL AST 36 H (14-35) U/L Total Protein 6.0 L (6.2-8.2) g/dL Albumin 3.5 L (3.8-4.9) g/dL Albumin/Globulin Ratio 1.40 L (1.60-3.17) Ratio 05/14/24 Range/Units 11:30 WBC (4.50-10.00) X 10*3/uL RBC (4.40-5.60) X 10*6/uL Hgb (13.0-17.0) g/dL Hct (39.6-50.0) % MCH (27.0-32.0) pg Neutrophils # (1.80-7.70) X 10*3/uL Anion Gap (4.00-12.00) mmol/L Creatinine (0.6-1.5) mg/dL Est GFR (CKD-EPI) (>=60) POC Glucose (mg/dL) 116 H (70-110) mg/dL AST (14-35) U/L Total Protein (6.2-8.2) g/dL Albumin (3.8-4.9) g/dL Albumin/Globulin Ratio (1.60-3.17) Ratio Microbiology - Last 24 Hours (Table) 05/12/24 12:11 Stool Culture - Preliminary Stool Pseudomonas aeruginosa 05/11/24 14:50 Blood Culture - Preliminary Blood Assessment and Plan Plan: Assessment: 1. Acute kidney injury secondary to vasomotor nephropathy secondary to hypovolemia and further worsen with the use of diuretic. Creatinine 3.1 on admission and is improved to 1.6 today. No hydronephrosis noted on CAT scan. 2. Chronic kidney disease stage IIIb with baseline creatinine near 1.5 secondary to nephrosclerosis. 3. Severe sepsis secondary to colitis on antibiotics. 4. Metabolic acidosis secondary to acute kidney injury, lactic acidosis, IV fluids and GI losses. Improved. Plan: Maintain gentle IV hydration. Encouraged oral intake. Avoid nephrotoxins. Follow-up outpatient 1 to 2 weeks postdischarge.
--- NOTE | 2024-05-14 13:05 | P.PN ---
Subjective Progress Note Date: 05/14/24 patient is a 83-year-old gentleman with past medical history significant for hypertension, diabetes mellitus, hyperlipidemia who presented to the ER because of vomiting and diarrhea. Was brought in by family according to them patient is sick for the last couple of days. Patient has been having multiple episodes of diarrhea and vomiting. Vomiting is projectile, no evidence of any blood in it. Patient having multiple bouts of loose stools with no evidence of any blood in it. Patient also complains denies abdominal pain which is cramping in nature involving the whole abdomen. Patient's girlfriend is also been sick. There is no complaint of fever or chills. There is no complaint of chest pain or shortness of breath. Patient was complaining of lethargic and weakness. Patient has not been eating and drinking enough and was complaining of being thirsty. Because of the symptoms, patient brought to the ER Initial lab work done in the ER showed WBC 24.1, hemoglobin 12.3, platelet count 226, sodium 137, potassium 4.4, BUN 50, creatinine 3.15, glucose 145, lactate 8.9 magnesium 2.4 AST 30, ALT 27, Influenza A not detected Influenza B not detected RSV not detected COVID-19 not detected EKG done in the ER showed heart rate of 73 , no ST segment elevation or depression seen, no T-wave inversions seen. Chest x-ray done in the ER showed no acute cardiopulmonary process CT abdomen and pelvis done showed long segment wall thickening of the ascending and sigmoid colon with surrounding mesenteric inflammation and liquid stool suggesting infectious colitis. Additionally there is a small developing lobulated fluid collection adjacent to the sigmoid colon measuring approximately 3 cm, no drainable abscess at this time. Patient admitted to internal medicine service 05/13. Patient seen and examined. States he feels much better. State he wants to go home today. Discussed with him regarding need for him to stay in the hospital for further treatment. 05/14. Patient seen and examined blood work done this morning showed WBC 10.28, hemoglobin 10.4, platelet count 185, sodium 142, potassium 3.6, BUN 25,, creatinine 1.6. Denies any abdominal pain. Denies nausea or vomiting REVIEW OF SYSTEMS: CONSTITUTIONAL: No fever, no malaise,. CARDIOVASCULAR: No chest pain, no palpitations, no syncope. PULMONARY: No shortness of breath, no cough, GASTROINTESTINAL: No diarrhea, no nausea, no vomiting, no abdominal pain. NEUROLOGICAL: No headaches, no weakness, PHYSICAL EXAMINATION: GENERAL: The patient is alert and oriented x3, not in any acute distress. Well developed, well nourished. HEENT: Pupils are round and equally reacting to light. EOMI. No scleral icterus. No conjunctival pallor. Normocephalic, atraumatic. No pharyngeal erythema. No thyromegaly. CARDIOVASCULAR: S1 and S2 present. No murmurs, rubs, or gallops. PULMONARY: Chest is clear to auscultation, no wheezing or crackles. ABDOMEN: Soft, nontender, nondistended, normoactive bowel sounds. No palpable organomegaly. MUSCULOSKELETAL: No joint swelling or deformity. EXTREMITIES: No cyanosis, clubbing, or pedal edema. NEUROLOGICAL: Gross neurological examination did not reveal any focal deficits. SKIN: No rashes. Assessment and plan Severe sepsis Lactic acidosis Acute colitis involving descending and sigmoid colon with fluid collection adjacent to sigmoid colon measuring 3 cm Acute kidney injury Metabolic acidosis Abdominal pain History of hypertension History of hyperlipidemia History of diabetes mellitus Monitor vital signs Monitor CBC Monitor CMP Continue telemetry monitoring Follow-up on blood cultures stool for C. difficile negative Continue IV Zosyn Continue IV fluids Strict I's and O's, daily weights Avoid nephrotoxic agents Avoid hypotension Hold lisinopril and HCTZ Nephrology following General Surgery evaluated, consulted IR for drainage, IR requesting repeat CT abdominal pelvis once renal function improves ID following Labs and medication were reviewed.. Continue same treatment. Continue with symptomatic treatment. Resume home medication. Monitor labs and vitals. DVT and GI prophylaxis. Further recommendations as per clinical course of the patient Dictation was produced using [employer] dictation software. please excuse any grammatical, word or spelling errors. Objective - Vital Signs Vital signs: Vital Signs Temp 98.4 F 05/14/24 06:55 Pulse 66 05/14/24 06:55 Resp 18 05/14/24 06:55 BP 157/85 05/14/24 06:55 Pulse Ox 97 05/14/24 06:55 FiO2 Intake & Output 05/13/24 05/14/24 05/14/24 18:59 06:59 18:59 Other: Voiding Method Toilet # Voids 4 1 # Bowel Movements 3 1 - Labs CBC & Chem 7: 05/14/24 03:03 05/14/24 03:03 Labs: Abnormal Lab Results - Last 24 Hours (Table) 05/12/24 05/13/24 05/13/24 Range/Units 11:04 06:09 09:57 WBC 12.0 H (3.8-10.6) k/uL RBC 3.23 L (4.30-5.90) m/uL Hgb 10.2 L (13.0-17.5) gm/dL Hct 32.1 L (39.0-53.0) % MCH (27.0-32.0) pg Neutrophils # 10.3 H (1.3-7.7) k/uL Sodium (137-145) mmol/L Anion Gap (4.00-12.00) mmol/L BUN (9-20) mg/dL Creatinine (0.66-1.25) mg/dL Est GFR (CKD-EPI) (>=60) POC Glucose (mg/dL) (70-110) mg/dL Hemoglobin A1c 6.3 H (<=6.0) % AST (14-35) U/L Total Protein (6.3-8.2) g/dL Albumin (3.8-4.9) g/dL Albumin/Globulin Ratio (1.60-3.17) Ratio Urine Osmolality 363 L (400-1100) mOsm/kg 05/13/24 05/13/24 05/14/24 Range/Units 09:57 20:35 03:03 WBC 10.28 H (3.8-10.6) k/uL RBC 3.20 L (4.30-5.90) m/uL Hgb 10.4 L (13.0-17.5) gm/dL Hct 30.7 L (39.0-53.0) % MCH 32.5 H (27.0-32.0) pg Neutrophils # 8.10 H (1.3-7.7) k/uL Sodium 136 L (137-145) mmol/L Anion Gap (4.00-12.00) mmol/L BUN 39 H (9-20) mg/dL Creatinine 1.94 H (0.66-1.25) mg/dL Est GFR (CKD-EPI) (>=60) POC Glucose (mg/dL) 157 H (70-110) mg/dL Hemoglobin A1c (<=6.0) % AST (14-35) U/L Total Protein 6.1 L (6.3-8.2) g/dL Albumin (3.8-4.9) g/dL Albumin/Globulin Ratio (1.60-3.17) Ratio Urine Osmolality (400-1100) mOsm/kg 05/14/24 Range/Units 03:03 WBC (3.8-10.6) k/uL RBC (4.30-5.90) m/uL Hgb (13.0-17.5) gm/dL Hct (39.0-53.0) % MCH (27.0-32.0) pg Neutrophils # (1.3-7.7) k/uL Sodium (137-145) mmol/L Anion Gap 13.80 H (4.00-12.00) mmol/L BUN (9-20) mg/dL Creatinine 1.6 H (0.66-1.25) mg/dL Est GFR (CKD-EPI) 43 L (>=60) POC Glucose (mg/dL) (70-110) mg/dL Hemoglobin A1c (<=6.0) % AST 36 H (14-35) U/L Total Protein 6.0 L (6.3-8.2) g/dL Albumin 3.5 L (3.8-4.9) g/dL Albumin/Globulin Ratio 1.40 L (1.60-3.17) Ratio Urine Osmolality (400-1100) mOsm/kg Microbiology - Last 24 Hours (Table) 05/11/24 14:50 Blood Culture - Preliminary Blood
[2024-05-14] MEDS: POTASSIUM CHLORIDE ER 20 MEQ TAB.ER PO STA (13:30)
--- NOTE | 2024-05-14 13:54 | P.PN ---
Subjective Progress Note Date: 05/14/24 Principal diagnosis: Reason for follow-up is colitis/possible abscess Patient is a 83-year-old male with a past medical history significant for diabetes mellitus hypertension PTSD presenting to the hospital for evaluation of vomiting and diarrhea, patient did have elevated white count CT abdominal pelvis did shows long segment thickening of the descending and sigmoid colon with loculated fluid collection probably this consultation. On today's evaluation that is 05/14/2024, Patient is afebrile this morning patient denies having any chest pain shortness of breath or cough, the patient is currently on room air, patient denies any abdominal pain no diarrhea no naus ea no vomiting feeling better wants to go home. Patient white count is down to 10.28 creatinine is 1.6 stool is growing Pseudomonas with sensitivities pending Objective - Vital Signs Vital signs: Vital Signs Temp 98.4 F 05/14/24 06:55 Pulse 66 05/14/24 08:13 Resp 18 05/14/24 08:13 BP 157/85 05/14/24 06:55 Pulse Ox 97 05/14/24 06:55 FiO2 Intake & Output 05/13/24 05/14/24 05/14/24 18:59 06:59 18:59 Other: Voiding Method Toilet Toilet # Voids 4 1 # Bowel Movements 3 1 - Exam GENERAL DESCRIPTION: An elderly male lying in bed in no distress RESPIRATORY SYSTEM: Unlabored breathing , decreased breath sounds at bases HEART: S1 S2 regular rate and rhythm , ABDOMEN: Soft , no tenderness EXTREMITIES: No edema feet - Labs CBC & Chem 7: 05/14/24 03:03 05/14/24 03:03 Labs: Abnormal Lab Results - Last 24 Hours (Table) 05/13/24 05/14/24 05/14/24 Range/Units 20:35 03:03 03:03 WBC 10.28 H (4.50-10.00) X 10*3/uL RBC 3.20 L (4.40-5.60) X 10*6/uL Hgb 10.4 L (13.0-17.0) g/dL Hct 30.7 L (39.6-50.0) % MCH 32.5 H (27.0-32.0) pg Neutrophils # 8.10 H (1.80-7.70) X 10*3/uL Anion Gap 13.80 H (4.00-12.00) mmol/L Creatinine 1.6 H (0.6-1.5) mg/dL Est GFR (CKD-EPI) 43 L (>=60) POC Glucose (mg/dL) 157 H (70-110) mg/dL AST 36 H (14-35) U/L Total Protein 6.0 L (6.2-8.2) g/dL Albumin 3.5 L (3.8-4.9) g/dL Albumin/Globulin Ratio 1.40 L (1.60-3.17) Ratio 05/14/24 Range/Units 11:30 WBC (4.50-10.00) X 10*3/uL RBC (4.40-5.60) X 10*6/uL Hgb (13.0-17.0) g/dL Hct (39.6-50.0) % MCH (27.0-32.0) pg Neutrophils # (1.80-7.70) X 10*3/uL Anion Gap (4.00-12.00) mmol/L Creatinine (0.6-1.5) mg/dL Est GFR (CKD-EPI) (>=60) POC Glucose (mg/dL) 116 H (70-110) mg/dL AST (14-35) U/L Total Protein (6.2-8.2) g/dL Albumin (3.8-4.9) g/dL Albumin/Globulin Ratio (1.60-3.17) Ratio Microbiology - Last 24 Hours (Table) 05/12/24 12:11 Stool Culture - Preliminary Stool Pseudomonas aeruginosa 05/11/24 14:50 Blood Culture - Preliminary Blood Assessment and Plan (1) Colitis Current Visit: Yes Status: Acute Code(s): K52.9 - NONINFECTIVE GASTROENTERITIS AND COLITIS, UNSPECIFIED SNOMED Code(s): 16800973 (2) Leukocytosis Current Visit: Yes Status: Acute Code(s): D72.829 - ELEVATED WHITE BLOOD CELL COUNT, UNSPECIFIED SNOMED Code(s): 366161349 (3) Abscess Current Visit: Yes Status: Acute Code(s): L02.91 - CUTANEOUS ABSCESS, UNSPECIFIED SNOMED Code(s): 214242169 (4) Sepsis Current Visit: Yes Status: Acute Code(s): A41.9 - SEPSIS, UNSPECIFIED ORGANISM SNOMED Code(s): 42384399 Plan: 1patient presenting to the hospital with acute nausea vomiting and diarrhea in this patient did have significantly evaded white count elevated lactic acid with evidence of diffuse colitis involving the descending sigmoid colon and there was also mention of some loculated fluid collection with a question of possible peridiverticular abscess and will need to cover for enteric gram-negative both aerobes and anaerobes 2-stool for C. difficile negative, stool culture currently growing Pseudomonas sensitivities pending 3-patient seem to have responded to Zosyn to continue while waiting for the culture to finalize will benefit from repeat CT to make sure overall improvement before transition to oral antibiotics otherwise will need IV antibiotics Dictation was produced using [employer] dictation software. please excuse any grammatical, word or spelling errors. Time with Patient: Less than 30
[2024-05-14 16:39] LABS: Glucose,Whole Blood 86 mg/dL (70-110)
--- NOTE | 2024-05-14 17:57 | P.PN ---
Subjective Progress Note Date: 05/14/24 On today's evaluation of 05/13/2024, the patient is feeling better compared to yesterday. Abdominal pain is subsided significantly. He is taking some clear liquid diet. No significant abdominal pain. No nausea. No emesis. The white cell count is dropped down to 12 with a hemoglobin 10.2. His creatinine is also improved and was down to 1.9 from a baseline of 3.15. Sodium levels at 136 with a potassium level of 3.9. Serum bicarb is at 26. His procalcitonin level was 65.4. The blood cultures been negative. The patient was seen by general surgery and a CAT scan of the abdomen and pelvis that was done on 05/11/2024 showed evidence of colitis with long segment wall thickening of the descending and sigmoid colon with surrounding mesenteric inflammation. There is also a small developing loculated fluid collection adjacent to the sigmoid colon measuring 3 cm. No drainable abscess at this point in time. The patient is currently on room air oxygen. Able to communicate. He denies having any specific complaints. General surgery is on the case and the plan is to treat this patient medically and gradually transfers diet as tolerated. He remains on IV fluids. He remains on IV Zosyn. Nausea is controlled. On 05/14/2024, the patient is feeling well. He has no specific complaints. The patient is still being treated for colitis. The patient remains on antibiotics and the patient remains on IV Zosyn. The white cell count is down to 10 with a hemoglobin 10.4 and a platelet count of 185. Creatinine is improved and is currently down to 1.6 with a BUN of 25 and sodium levels at 142. The patient is tolerating clear liquid diet. Remains on lactated Ringer at rate of 50 cc an hour. No altered mentation. No chest pain. Remains on room air oxygen with a pulse ox of 97%.Stool sample was positive for Pseudomonas aeruginosa. Objective - Vital Signs Vital signs: Vital Signs Temp 98.4 F 05/14/24 06:55 Pulse 66 05/14/24 08:13 Resp 18 05/14/24 08:13 BP 157/85 05/14/24 06:55 Pulse Ox 97 05/14/24 06:55 FiO2 Intake & Output 05/13/24 05/14/24 05/14/24 18:59 06:59 18:59 Other: Voiding Method Toilet Toilet # Voids 4 1 # Bowel Movements 3 1 - Exam GENERAL EXAM: Alert, pleasant 83-year-old male, on room air, fairly comfortable in no apparent distress. HEAD: Normocephalic. EYES: Normal reaction of pupils, equal size. NOSE: Clear with pink turbinates. THROAT: No erythema or exudates. NECK: No masses, no JVD. CHEST: No chest wall deformity. LUNGS: Equal air entry with no crackles, wheeze, rhonchi or dullness. CVS: S1 and S2 normal with no audible murmur, regular rhythm. ABDOMEN: No hepatosplenomegaly, normal bowel sounds, no guarding or rigidity. SPINE: No scoliosis or deformity SKIN: No rashes CENTRAL NERVOUS SYSTEM: No focal deficits, tone is normal in all 4 extremities. EXTREMITIES: There is no peripheral edema. No clubbing, no cyanosis. Peripheral pulses are intact. - Labs CBC & Chem 7: 05/14/24 03:03 05/14/24 03:03 Labs: Abnormal Lab Results - Last 24 Hours (Table) 05/13/24 05/14/24 05/14/24 Range/Units 20:35 03:03 03:03 WBC 10.28 H (4.50-10.00) X 10*3/uL RBC 3.20 L (4.40-5.60) X 10*6/uL Hgb 10.4 L (13.0-17.0) g/dL Hct 30.7 L (39.6-50.0) % MCH 32.5 H (27.0-32.0) pg Neutrophils # 8.10 H (1.80-7.70) X 10*3/uL Anion Gap 13.80 H (4.00-12.00) mmol/L Creatinine 1.6 H (0.6-1.5) mg/dL Est GFR (CKD-EPI) 43 L (>=60) POC Glucose (mg/dL) 157 H (70-110) mg/dL AST 36 H (14-35) U/L Total Protein 6.0 L (6.2-8.2) g/dL Albumin 3.5 L (3.8-4.9) g/dL Albumin/Globulin Ratio 1.40 L (1.60-3.17) Ratio 05/14/24 Range/Units 11:30 WBC (4.50-10.00) X 10*3/uL RBC (4.40-5.60) X 10*6/uL Hgb (13.0-17.0) g/dL Hct (39.6-50.0) % MCH (27.0-32.0) pg Neutrophils # (1.80-7.70) X 10*3/uL Anion Gap (4.00-12.00) mmol/L Creatinine (0.6-1.5) mg/dL Est GFR (CKD-EPI) (>=60) POC Glucose (mg/dL) 116 H (70-110) mg/dL AST (14-35) U/L Total Protein (6.2-8.2) g/dL Albumin (3.8-4.9) g/dL Albumin/Globulin Ratio (1.60-3.17) Ratio Microbiology - Last 24 Hours (Table) 05/12/24 12:11 Stool Culture - Preliminary Stool Pseudomonas aeruginosa 05/11/24 14:50 Blood Culture - Preliminary Blood Assessment and Plan Plan: Colitis descending and sigmoid, currently on IV Zosyn. Abdominal pain is subsided and the patient is being advanced and is currently on clear liquid diet. Stool sample was positive for Pseudomonas aeruginosa Elevated procalcitonin level, likely secondary to sepsis/colitis Generalized weakness secondary to nausea, vomiting, diarrhea for [address] scan of the abdomen revealed a long segment wall thickening of the descending and sigmoid colon with surrounding mesenteric inflammation and liquid stool suggesting infectious colitis. There is a small developing loculated fluid collection adjacent to the sigmoid colon measuring approximately 3.0 cm. No drainable abscess at this time. No significant free air/pneumoperitoneum Sepsis secondary to acute colitis, improving Acute kidney injury secondary to dehydration, improving Leukocytosis secondary to above, improving Diabetes mellitus, type II Hyperlipidemia History of hypertension Plan: Hemodynamically stable Currently stable and on room air Blood pressure stable Continue IV fluids and the patient is currently on lactated Ringer at rate of 50 cc an hour Continued on Zosyn Clear liquid diet, advance diet as tolerated IR consult for drainage of abscess, no drainable abscess at this point in time, may need a follow-up CAT scan of the abdomen pelvis DNR CODE STATUS Overall condition is stable and the patient continues to improve.
--- NOTE | 2024-05-14 21:02 | P.PN ---
Subjective Patient seen and evaluated at bedside. Patient has no abdominal pain, denies nausea or vomiting, tolerating fld. Objective - Vital Signs Vital signs: Vital Signs Temp 99.8 F H 05/14/24 18:59 Pulse 74 05/14/24 18:59 Resp 17 05/14/24 18:59 BP 160/78 05/14/24 18:59 Pulse Ox 96 05/14/24 18:59 FiO2 Intake & Output 05/14/24 05/14/24 05/15/24 06:59 18:59 06:59 Other: Voiding Method Toilet Toilet # Voids 1 3 1 # Bowel Movements 1 1 1 - Exam gen: nad cv: rrr pul: non labored breathing abd: soft, non distended, non tender to palpation, no guarding or rebound tenderness - Labs CBC & Chem 7: 05/14/24 03:03 05/14/24 03:03 Labs: Abnormal Lab Results - Last 24 Hours (Table) 05/14/24 05/14/24 05/14/24 Range/Units 03:03 03:03 11:30 WBC 10.28 H (4.50-10.00) X 10*3/uL RBC 3.20 L (4.40-5.60) X 10*6/uL Hgb 10.4 L (13.0-17.0) g/dL Hct 30.7 L (39.6-50.0) % MCH 32.5 H (27.0-32.0) pg Neutrophils # 8.10 H (1.80-7.70) X 10*3/uL Anion Gap 13.80 H (4.00-12.00) mmol/L Creatinine 1.6 H (0.6-1.5) mg/dL Est GFR (CKD-EPI) 43 L (>=60) POC Glucose (mg/dL) 116 H (70-110) mg/dL AST 36 H (14-35) U/L Total Protein 6.0 L (6.2-8.2) g/dL Albumin 3.5 L (3.8-4.9) g/dL Albumin/Globulin Ratio 1.40 L (1.60-3.17) Ratio Microbiology - Last 24 Hours (Table) 05/12/24 12:11 Stool Culture - Preliminary Stool Pseudomonas aeruginosa 05/11/24 14:50 Blood Culture - Preliminary Blood Assessment and Plan Assessment: 83 yo male w/ colitis and associated abscess -creatinine trending down -plan for ctap w/ iv contrast pending nephro recs Time with Patient: Greater than 30
[2024-05-14 21:03] LABS: Glucose,Whole Blood 98 mg/dL (70-110)
[2024-05-15 06:25] LABS: Glucose,Whole Blood 109 mg/dL (70-110)
[2024-05-15 08:46] LABS: Basophils % (A) 0 %; Eosinophils # (A) 0.1 k/uL (0-0.7); Eosinophils % (A) 2 %; HCT 32.8 % (39.0-53.0); HGB 10.6 gm/dL (13.0-17.5); Lymphocytes # (A) 0.7 k/uL (1.0-4.8); Lymphocytes % (A) 15 %; MCH 31.8 pg (25.0-35.0); MCHC 32.2 g/dL (31.0-37.0); MCV 98.9 fL (80.0-100.0); Monocytes # (A) 0.3 k/uL (0-1.0); Monocytes % (A) 6 %; Neutrophils # (A) 3.6 k/uL (1.3-7.7); Neutrophils % (A) 75 %; Platelet Count 182 k/uL (150-450); RBC 3.31 m/uL (4.30-5.90); RDW 12.6 % (11.5-15.5); WBC 4.8 k/uL (3.8-10.6)
[2024-05-15 09:00] LABS: African American GFR (CKD) 50 (>60 ml/min/1.73 sqM); Anion Gap 9 mmol/L; Blood Urea Nitrogen 17 mg/dL (9-20); Calcium 8.7 mg/dL (8.4-10.2); Carbon Dioxide 24 mmol/L (22-30); Chloride 101 mmol/L (98-107); Glucose 191 mg/dL (74-99); Non-African American GFR(CKD) 43 (>60 ml/min/1.73 sqM); Sodium 134 mmol/L (137-145)
[2024-05-15 09:06] LABS: Potassium 3.3 mmol/L (3.5-5.1)
--- NOTE | 2024-05-15 10:36 | P.PN ---
Subjective Patient is seen in follow-up for acute kidney injury on chronic kidney disease. Renal function better. Tolerating liquids. Having loose bowel movements. Vital signs are stable. General: No acute distress. HEENT: Head exam is unremarkable. LUNGS: No audible rhonchi or wheezes. HEART: Rate and Rhythm are regular. ABDOMEN: Nontender. EXTREMITITES: Trace edema. Objective - Vital Signs Vital signs: Vital Signs Temp 98.5 F 05/15/24 07:23 Pulse 116 H 05/15/24 07:23 Resp 18 05/15/24 07:23 BP 99/64 05/15/24 07:23 Pulse Ox 93 L 05/15/24 07:23 FiO2 Intake & Output 05/14/24 05/15/24 05/15/24 18:59 06:59 18:59 Other: Voiding Method Toilet Toilet # Voids 3 1 1 # Bowel Movements 1 1 1 - Labs CBC & Chem 7: 05/15/24 08:32 05/15/24 08:32 Labs: Abnormal Lab Results - Last 24 Hours (Table) 05/14/24 05/15/24 05/15/24 Range/Units 11:30 08:32 08:32 RBC 3.31 L (4.30-5.90) m/uL Hgb 10.6 L (13.0-17.5) gm/dL Hct 32.8 L (39.0-53.0) % Lymphocytes # 0.7 L (1.0-4.8) k/uL Sodium 134 L (137-145) mmol/L Potassium 3.3 L (3.5-5.1) mmol/L Creatinine 1.50 H (0.66-1.25) mg/dL Glucose 191 H (74-99) mg/dL POC Glucose (mg/dL) 116 H (70-110) mg/dL Microbiology - Last 24 Hours (Table) 05/12/24 12:11 Stool Culture - Preliminary Stool Pseudomonas aeruginosa 05/11/24 14:50 Blood Culture - Preliminary Blood Assessment and Plan Plan: Assessment: 1. Acute kidney injury secondary to vasomotor nephropathy secondary to hypovolemia and further worsen with the use of diuretic. Creatinine 3.1 on admission and is improved to 1.5 today. No hydronephrosis noted on CAT scan. 2. Chronic kidney disease stage IIIb with baseline creatinine near 1.5 secondary to nephrosclerosis. 3. Severe sepsis secondary to colitis on antibiotics. Stool culture positive for Pseudomonas. 4. Metabolic acidosis secondary to acute kidney injury, lactic acidosis, IV fluids and GI losses. Improved. 5. Hypokalemia from poor intake. Plan: Maintain IV hydration. Increase rate to 75 cc an hour. Replace potassium. Encouraged oral intake. Avoid nephrotoxins. CT with IV contrast being considered by surgery. Discussed risk of worsening renal function, post IV contrast exposure, with patient. He understands. Follow-up outpatient 1 to 2 weeks postdischarge.
[2024-05-15] MEDS: POTASSIUM CHLORIDE ER 20 MEQ TAB.ER PO STA (11:11)
[2024-05-15 11:58] LABS: Glucose,Whole Blood 96 mg/dL (70-110)
[2024-05-15] MEDS: SODIUM CHLORIDE 0.9% 500 ML 500 ML IV ONE ×2 (12:09→12:59)
--- NOTE | 2024-05-15 13:11 | P.PN ---
Subjective Progress Note Date: 05/15/24 patient is a 83-year-old gentleman with past medical history significant for hypertension, diabetes mellitus, hyperlipidemia who presented to the ER because of vomiting and diarrhea. Was brought in by family according to them patient is sick for the last couple of days. Patient has been having multiple episodes of diarrhea and vomiting. Vomiting is projectile, no evidence of any blood in it. Patient having multiple bouts of loose stools with no evidence of any blood in it. Patient also complains denies abdominal pain which is cramping in nature involving the whole abdomen. Patient's girlfriend is also been sick. There is no complaint of fever or chills. There is no complaint of chest pain or shortness of breath. Patient was complaining of lethargic and weakness. Patient has not been eating and drinking enough and was complaining of being thirsty. Because of the symptoms, patient brought to the ER Initial lab work done in the ER showed WBC 24.1, hemoglobin 12.3, platelet count 226, sodium 137, potassium 4.4, BUN 50, creatinine 3.15, glucose 145, lactate 8.9 magnesium 2.4 AST 30, ALT 27, Influenza A not detected Influenza B not detected RSV not detected COVID-19 not detected EKG done in the ER showed heart rate of 73 , no ST segment elevation or depression seen, no T-wave inversions seen. Chest x-ray done in the ER showed no acute cardiopulmonary process CT abdomen and pelvis done showed long segment wall thickening of the ascending and sigmoid colon with surrounding mesenteric inflammation and liquid stool suggesting infectious colitis. Additionally there is a small developing lobulated fluid collection adjacent to the sigmoid colon measuring approximately 3 cm, no drainable abscess at this time. Patient admitted to internal medicine service 05/13. Patient seen and examined. States he feels much better. State he wants to go home today. Discussed with him regarding need for him to stay in the hospital for further treatment. 05/14. Patient seen and examined blood work done this morning showed WBC 10.28, hemoglobin 10.4, platelet count 185, sodium 142, potassium 3.6, BUN 25,, creatinine 1.6. Denies any abdominal pain. Denies nausea or vomiting 05/15. Patient seen and examined. Blood work done today showed WBC 4.8, hemoten 0.6, sodium 134, potassium 3.3, BUN 17, creatinine 1.50. Denies abdominal pain. Denies diarrhea. States he feels better REVIEW OF SYSTEMS: CONSTITUTIONAL: No fever, no malaise,. CARDIOVASCULAR: No chest pain, no palpitations, no syncope. PULMONARY: No shortness of breath, no cough, GASTROINTESTINAL: As mentioned above NEUROLOGICAL: No headaches, no weakness, PHYSICAL EXAMINATION: GENERAL: The patient is alert and oriented x3, not in any acute distress. Well developed, well nourished. HEENT: Pupils are round and equally reacting to light. EOMI. No scleral icterus. No conjunctival pallor. Normocephalic, atraumatic. No pharyngeal erythema. No thyromegaly. CARDIOVASCULAR: S1 and S2 present. No murmurs, rubs, or gallops. PULMONARY: Chest is clear to auscultation, no wheezing or crackles. ABDOMEN: Soft, nontender, nondistended, normoactive bowel sounds. No palpable organomegaly. MUSCULOSKELETAL: No joint swelling or deformity. EXTREMITIES: No cyanosis, clubbing, or pedal edema. NEUROLOGICAL: Gross neurological examination did not reveal any focal deficits. SKIN: No rashes. Assessment and plan Severe sepsis Lactic acidosis Acute colitis involving descending and sigmoid colon with fluid collection adjacent to sigmoid colon measuring 3 cm Acute kidney injury Metabolic acidosis Abdominal pain History of hypertension History of hyperlipidemia History of diabetes mellitus Monitor vital signs Monitor CBC Monitor CMP Continue telemetry monitoring Follow-up on blood cultures stool for C. difficile negative Continue IV Zosyn Continue IV fluids Strict I's and O's, daily weights Avoid nephrotoxic agents Avoid hypotension Hold lisinopril and HCTZ Nephrology following General Surgery evaluated, consulted IR for drainage, IR requesting repeat CT abdominal pelvis once renal function improves ID following Labs and medication were reviewed.. Continue same treatment. Continue with symptomatic treatment. Resume home medication. Monitor labs and vitals. DVT and GI prophylaxis. Further recommendations as per clinical course of the patient Dictation was produced using [email or web address] dictation software. please excuse any grammatical, word or spelling errors. Objective - Vital Signs Vital signs: Vital Signs Temp 98.5 F 05/15/24 07:23 Pulse 116 H 05/15/24 07:23 Resp 18 05/15/24 07:23 BP 99/64 05/15/24 07:23 Pulse Ox 93 L 05/15/24 07:23 FiO2 Intake & Output 05/14/24 05/15/24 05/15/24 18:59 06:59 18:59 Other: Voiding Method Toilet Toilet # Voids 3 1 1 # Bowel Movements 1 1 1 - Labs CBC & Chem 7: 05/15/24 08:32 05/15/24 08:32 Labs: Abnormal Lab Results - Last 24 Hours (Table) 05/14/24 05/15/24 05/15/24 Range/Units 11:30 08:32 08:32 RBC 3.31 L (4.30-5.90) m/uL Hgb 10.6 L (13.0-17.5) gm/dL Hct 32.8 L (39.0-53.0) % Lymphocytes # 0.7 L (1.0-4.8) k/uL Sodium 134 L (137-145) mmol/L Potassium 3.3 L (3.5-5.1) mmol/L Creatinine 1.50 H (0.66-1.25) mg/dL Glucose 191 H (74-99) mg/dL POC Glucose (mg/dL) 116 H (70-110) mg/dL Microbiology - Last 24 Hours (Table) 05/12/24 12:11 Stool Culture - Preliminary Stool Pseudomonas aeruginosa 05/11/24 14:50 Blood Culture - Preliminary Blood
--- NOTE | 2024-05-15 13:14 | CT ---
EXAMINATION TYPE: CT abdomen pelvis w con DATE OF EXAM: 05/15/2024 12:52 PM COMPARISON: 05/11/2024 CLINICAL INDICATION: Male, 83 years old with history of follow up on colitis with abscess; ABDOMEN AB SCESS TECHNIQUE: Axial CT abdomen pelvis w con;Sagittal and coronal reformats were created on a separate w orkstation. Contrast used:100ml mL of Isovue 300 with IV Contrast, (none if empty) Oral contrast used: without Oral Contrast (none if empty) CT DLP: 1216.3 mGycm, Automated exposure control for dose reduction was used. FINDINGS: LOWER CHEST: Mitral valve annular calcifications. The heart is mildly enlarged for size. ABDOMEN LIVER: Unremarkable GALLBLADDER AND BILE DUCTS: Unremarkable. PANCREAS: Unremarkable. SPLEEN: Small splenule is present. ADRENAL GLANDS: Unremarkable. KIDNEYS AND URETERS: No evidence of hydronephrosis or renal calculus. The ureters are unremarkable. Simple appearing left renal cyst. PELVIS BLADDER: No evidence for wall thickening or mass given limitations of exam. REPRODUCTIVE: Unremarkable. ABDOMEN & PELVIS STOMACH AND BOWEL: No evidence of bowel obstruction. There remains some mild wall thickening with red uction in edema series 201 image 52. There is markedly redundant sigmoid colon noted. PERITONEUM/RETROPERITONEUM: No evidence of pneumoperitoneum or free fluid. VASCULATURE: Mild atherosclerotic calcifications are present throughout the abdominal aorta and its b ranches. No evidence of aortic aneurysm. MUSCULOSKELETAL: No acute osseous abnormalities. Mild disc degeneration changes are present throughou t the thoracolumbar spine. 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 LYMPH NODES: No gross evidence for lymphadenopathy. SOFT TISSUE/ABDOMINAL WALL: Unremarkable IMPRESSION: There remains mild wall thickening of the sigmoid colon without organizing fluid collection or mass v isualized. No lymphadenopathy or other active process in the abdomen. [facility], , 05/15/2024 1:12 PM
--- NOTE | 2024-05-15 14:52 | P.PN ---
Subjective Progress Note Date: 05/15/24 SURGICAL PROGRESS NOTE CHIEF COMPLAINT: Abdominal pain HISTORY OF PRESENT ILLNESS: Patient's abdominal pain resolved. He reports not having pain for about 3 days now. He has had loose bowel movements. He had low-grade temp of 99 mildly tachycardic. WBC is down from 10.2-4.8 potassium 3.3 creatinine 1.50 PHYSICAL EXAM: VITAL SIGNS: Reviewed. GENERAL: Well-developed in no acute distress. ABDOMEN: Soft. Nondistended. Nontender. NEUROLOGIC: Alert and oriented. Cranial nerves II through XII grossly intact. ASSESSMENT: 1. Colitis with abscess 2. Acute kidney injury PLAN: -CT scan abdomen and pelvis with IV contrast ordered to further evaluate for improvement/resolution of colitis with abscess. Discussed case with nephrology regarding IV antibiotics and elevated creatinine -Will give a 500 mL fluid bolus before CT scan and after CAT scan -Continue the full liquid diet -Continue antibiotics Physician [employer] Former note has been reviewed by physician. Signing provider agrees with the documented findings, assessment, and plan of care. Objective - Vital Signs Vital signs: Vital Signs Temp 99.5 F 05/15/24 07:11 Pulse 116 H 05/15/24 08:00 Resp 18 05/15/24 08:00 BP 162/79 05/15/24 07:11 Pulse Ox 94 L 05/15/24 07:11 FiO2 Intake & Output 05/14/24 05/15/24 05/15/24 18:59 06:59 18:59 Other: Voiding Method Toilet Toilet Toilet # Voids 3 1 1 # Bowel Movements 1 1 1 - Labs CBC & Chem 7: 05/15/24 08:32 05/15/24 08:32 Labs: Abnormal Lab Results - Last 24 Hours (Table) 05/15/24 05/15/24 Range/Units 08:32 08:32 RBC 3.31 L (4.30-5.90) m/uL Hgb 10.6 L (13.0-17.5) gm/dL Hct 32.8 L (39.0-53.0) % Lymphocytes # 0.7 L (1.0-4.8) k/uL Sodium 134 L (137-145) mmol/L Potassium 3.3 L (3.5-5.1) mmol/L Creatinine 1.50 H (0.66-1.25) mg/dL Glucose 191 H (74-99) mg/dL Microbiology - Last 24 Hours (Table) 05/12/24 12:11 Stool Culture - Preliminary Stool Pseudomonas aeruginosa 05/11/24 14:50 Blood Culture - Preliminary Blood Assessment and Plan Assessment: ctap improved, advance diet, if tolerating plan for discharge. Time with Patient: Less than 30
--- NOTE | 2024-05-15 17:23 | P.PN ---
Subjective Progress Note Date: 05/15/24 Principal diagnosis: Reason for follow-up is colitis/possible abscess Patient is a 83-year-old male with a past medical history significant for diabetes mellitus hypertension PTSD presenting to the hospital for evaluation of vomiting and diarrhea, patient did have elevated white count CT abdominal pelvis did shows long segment thickening of the descending and sigmoid colon with loculated fluid collection probably this consultation. On today's evaluation that is 05/15/2024,the patient denies any fever or any chills, patient is breathing comfortably on room air, the patient denies chest pain shortness of breath and no significant cough, patient abdominal pain has improved no nausea vomiting still having diarrhea slowed down. Patient white count is 4.8, creat is 1.50 stool is growing Pseudomonas aeruginosa Objective - Vital Signs Vital signs: Vital Signs Temp 98.5 F 05/15/24 07:23 Pulse 116 H 05/15/24 07:23 Resp 18 05/15/24 07:23 BP 99/64 05/15/24 07:23 Pulse Ox 93 L 05/15/24 07:23 FiO2 Intake & Output 05/14/24 05/15/24 05/15/24 18:59 06:59 18:59 Other: Voiding Method Toilet Toilet # Voids 3 1 1 # Bowel Movements 1 1 1 - Exam GENERAL DESCRIPTION: An elderly male lying in bed in no distress RESPIRATORY SYSTEM: Unlabored breathing , decreased breath sounds at bases HEART: S1 S2 regular rate and rhythm , ABDOMEN: Soft , no tenderness EXTREMITIES: No edema feet - Labs CBC & Chem 7: 05/15/24 08:32 05/15/24 08:32 Labs: Abnormal Lab Results - Last 24 Hours (Table) 05/14/24 05/15/24 05/15/24 Range/Units 11:30 08:32 08:32 RBC 3.31 L (4.30-5.90) m/uL Hgb 10.6 L (13.0-17.5) gm/dL Hct 32.8 L (39.0-53.0) % Lymphocytes # 0.7 L (1.0-4.8) k/uL Sodium 134 L (137-145) mmol/L Potassium 3.3 L (3.5-5.1) mmol/L Creatinine 1.50 H (0.66-1.25) mg/dL Glucose 191 H (74-99) mg/dL POC Glucose (mg/dL) 116 H (70-110) mg/dL Microbiology - Last 24 Hours (Table) 05/12/24 12:11 Stool Culture - Preliminary Stool Pseudomonas aeruginosa 05/11/24 14:50 Blood Culture - Preliminary Blood Assessment and Plan (1) Colitis Current Visit: Yes Status: Acute Code(s): K52.9 - NONINFECTIVE GASTROENTERITIS AND COLITIS, UNSPECIFIED SNOMED Code(s): 19445984 (2) Leukocytosis Current Visit: Yes Status: Acute Code(s): D72.829 - ELEVATED WHITE BLOOD CELL COUNT, UNSPECIFIED SNOMED Code(s): 137724687 (3) Abscess Current Visit: Yes Status: Acute Code(s): L02.91 - CUTANEOUS ABSCESS, UN SPECIFIED SNOMED Code(s): 507475131 (4) Sepsis Current Visit: Yes Status: Acute Code(s): A41.9 - SEPSIS, UNSPECIFIED ORGANISM SNOMED Code(s): 08673625 Plan: 1patient presenting to the hospital with acute nausea vomiting and diarrhea in this patient did have significantly evaded white count elevated lactic acid with evidence of diffuse colitis involving the descending sigmoid colon and there was also mention of some loculated fluid collection with a question of possible peridiverticular abscess and will need to cover for enteric gram-negative both aerobes and anaerobes 2-stool for C. difficile negative, stool culture currently growing Pseudomonas sensitivities pending 3-patient seem to have responded to Zosyn to continue awaiting CT if did have significant improvement we will be able to transition to oral antibiotics nursing staff tried to contact the micro lab to get the sensitivity on the Pseudomonas Dictation was produced using [employer] dictation software. please excuse any grammatical, word or spelling errors. Time with Patient: Less than 30
[2024-05-15 17:29] LABS: Glucose,Whole Blood 148 mg/dL (70-110)
--- NOTE | 2024-05-15 19:33 | P.PN ---
Subjective Progress Note Date: 05/15/24 On today's evaluation of 05/13/2024, the patient is feeling better compared to yesterday. Abdominal pain is subsided significantly. He is taking some clear liquid diet. No significant abdominal pain. No nausea. No emesis. The white cell count is dropped down to 12 with a hemoglobin 10.2. His creatinine is also improved and was down to 1.9 from a baseline of 3.15. Sodium levels at 136 with a potassium level of 3.9. Serum bicarb is at 26. His procalcitonin level was 65.4. The blood cultures been negative. The patient was seen by general surgery and a CAT scan of the abdomen and pelvis that was done on 05/11/2024 showed evidence of colitis with long segment wall thickening of the descending and sigmoid colon with surrounding mesenteric inflammation. There is also a small developing loculated fluid collection adjacent to the sigmoid colon measuring 3 cm. No drainable abscess at this point in time. The patient is currently on room air oxygen. Able to communicate. He denies having any specific complaints. General surgery is on the case and the plan is to treat this patient medically and gradually transfers diet as tolerated. He remains on IV fluids. He remains on IV Zosyn. Nausea is controlled. On 05/14/2024, the patient is feeling well. He has no specific complaints. The patient is still being treated for colitis. The patient remains on antibiotics and the patient remains on IV Zosyn. The white cell count is down to 10 with a hemoglobin 10.4 and a platelet count of 185. Creatinine is improved and is currently down to 1.6 with a BUN of 25 and sodium levels at 142. The patient is tolerating clear liquid diet. Remains on lactated Ringer at rate of 50 cc an hour. No altered mentation. No chest pain. Remains on room air oxygen with a pulse ox of 97%.Stool sample was positive for Pseudomonas aeruginosa. On today's evaluation of 05/15/2024, the patient has no abdominal pain. He is having loose bowel movement activity. He is afebrile and hemodynamically s table. White cell count is at 4.8. Creatinine is 1.5 with a BUN of 17 and a potassium level of 3.3 with a sodium level of 134. The patient remains on IV Zosyn. A follow-up CAT scan of the abdomen and pelvis was done and there is ongoing wall thickening of the sigmoid colon without organizing fluid collection or mass. No lymphadenopathy. The patient remains on room air oxygen. Objective - Vital Signs Vital signs: Vital Signs Temp 98.5 F 05/15/24 07:23 Pulse 116 H 05/15/24 07:23 Resp 18 05/15/24 07:23 BP 99/64 05/15/24 07:23 Pulse Ox 93 L 05/15/24 07:23 FiO2 Intake & Output 05/14/24 05/15/24 05/15/24 18:59 06:59 18:59 Other: Voiding Method Toilet Toilet # Voids 3 1 1 # Bowel Movements 1 1 1 - Exam GENERAL EXAM: Alert, pleasant 83-year-old male, on room air, fairly comfortable in no apparent distress. HEAD: Normocephalic. EYES: Normal reaction of pupils, equal size. NOSE: Clear with pink turbinates. THROAT: No erythema or exudates. NECK: No masses, no JVD. CHEST: No chest wall deformity. LUNGS: Equal air entry with no crackles, wheeze, rhonchi or dullness. CVS: S1 and S2 normal with no audible murmur, regular rhythm. ABDOMEN: No hepatosplenomegaly, normal bowel sounds, no guarding or rigidity. SPINE: No scoliosis or deformity SKIN: No rashes CENTRAL NERVOUS SYSTEM: No focal deficits, tone is normal in all 4 extremities. EXTREMITIES: There is no peripheral edema. No clubbing, no cyanosis. Peripheral pulses are intact. - Labs CBC & Chem 7: 05/15/24 08:32 05/15/24 08:32 Labs: Abnormal Lab Results - Last 24 Hours (Table) 05/15/24 05/15/24 Range/Units 08:32 08:32 RBC 3.31 L (4.30-5.90) m/uL Hgb 10.6 L (13.0-17.5) gm/dL Hct 32.8 L (39.0-53.0) % Lymphocytes # 0.7 L (1.0-4.8) k/uL Sodium 134 L (137-145) mmol/L Potassium 3.3 L (3.5-5.1) mmol/L Creatinine 1.50 H (0.66-1.25) mg/dL Glucose 191 H (74-99) mg/dL Microbiology - Last 24 Hours (Table) 05/12/24 12:11 Stool Culture - Preliminary Stool Pseudomonas aeruginosa 05/11/24 14:50 Blood Culture - Preliminary Blood Assessment and Plan Plan: Colitis descending and sigmoid, currently on IV Zosyn. Abdominal pain is subsided and the patient is being advanced and is currently on clear liquid diet. Stool sample was positive for Pseudomonas aeruginosa. Follow-up CAT scan of the abdomen pelvis showed some residual thickening and inflammation of the colon. No abscess or fluid collection. Remains on IV Zosyn. Elevated procalcitonin level, likely secondary to sepsis/colitis Generalized weakness secondary to nausea, vomiting, diarrhea secondary to above, improved Sepsis secondary to acute colitis, improving Acute kidney injury secondary to dehydration, improving Leukocytosis secondary to above, improving Diabetes mellitus, type II Hyperlipidemia History of hypertension Plan: Hemodynamically stable Currently stable and on room air Blood pressure stable Continue IV fluids and the patient is currently on lactated Ringer at rate of 50 cc an hour Continued on Zosyn Clear liquid diet, advance diet as tolerated, advance diet as tolerated follow-up CAT scan of the abdomen pelvis was noted DNR CODE STATUS Overall condition is stable and the patient continues to improve Pulmonary critical care services will sign off
[2024-05-15 20:30] LABS: Glucose,Whole Blood 112 mg/dL (70-110)
[2024-05-16 01:59] VITALS: PULSE 66; RESP 18
[2024-05-16 06:08] LABS: Glucose,Whole Blood 91 mg/dL (70-110)
[2024-05-16 08:12] VITALS: BP 153/75; TEMP 99.7
[2024-05-16 08:50] LABS: ALT 25 U/L (10-49); AST 38 U/L (14-35); Albumin 3.6 g/dL (3.8-4.9); Alkaline Phosphatase 49 U/L (41-126); BUN/Creat Ratio 8.82 Ratio (12.00-20.00); Calcium 8.5 mg/dL (8.7-10.3); Carbon Dioxide 23.3 mmol/L (21.6-31.8); Chloride 104 mmol/L (96-109); Globulin 2.4 g/dL (1.6-3.3); Glucose 90 mg/dL (70-110); Potassium 3.5 mmol/L (3.5-5.5); Sodium 138 mmol/L (135-145); Total Bilirubin 0.6 mg/dL (0.3-1.2)
[2024-05-16 09:15] LABS: Basophils # (A) 0.01 X 10*3/uL (0.00-0.10); Basophils % (A) 0.2 %; Eosinophils # (A) 0.14 X 10*3/uL (0.04-0.35); HCT 31.5 % (39.6-50.0); HGB 10.6 g/dL (13.0-17.0); Lymphocytes # (A) 1.39 X 10*3/uL (0.90-5.00); Lymphocytes % (A) 29.6 %; MCH 32.4 pg (27.0-32.0); MCHC 33.7 g/dL (32.0-37.0); MCV 96.3 FL (80.0-97.0); Mean Platelet Volume 10.9 FL (9.5-12.2); Monocytes # (A) 0.57 X 10*3/uL (0.20-1.00); Monocytes % (A) 12.1 %; NRBC Per 100 WBC 0 X 10*3/uL (0.00-0.01); Neutrophils # (A) 2.56 X 10*3/uL (1.80-7.70); Neutrophils % (A) 54.5 %; Platelet Count 170 X 10*3/uL (140-440); RBC 3.27 X 10*6/uL (4.40-5.60); RDW 12.9 % (11.5-14.5)
--- NOTE | 2024-05-16 10:33 | P.PN ---
Subjective Patient is seen in follow-up for acute kidney injury on chronic kidney disease. Renal function little worse today. Tolerating regular diet. Vital signs are stable. General: No acute distress. HEENT: Head exam is unremarkable. LUNGS: No audible rhonchi or wheezes. HEART: Rate and Rhythm are regular. ABDOMEN: Nontender. EXTREMITITES: No edema. Objective - Vital Signs Vital signs: Vital Signs Temp 99.7 F H 05/16/24 07:46 Pulse 66 05/16/24 07:46 Resp 18 05/16/24 07:46 BP 153/75 05/16/24 07:46 Pulse Ox 96 05/16/24 07:46 FiO2 Intake & Output 05/15/24 05/16/24 05/16/24 18:59 06:59 18:59 Other: Voiding Method Toilet Toilet # Voids 3 1 # Bowel Movements 1 1 - Labs CBC & Chem 7: 05/16/24 05:13 05/16/24 05:13 Labs: Abnormal Lab Results - Last 24 Hours (Table) 05/15/24 05/15/24 05/16/24 Range/Units 17:27 20:29 05:13 RBC 3.27 L (4.40-5.60) X 10*6/uL Hgb 10.6 L (13.0-17.0) g/dL Hct 31.5 L (39.6-50.0) % MCH 32.4 H (27.0-32.0) pg Creatinine (0.6-1.5) mg/dL Est GFR (CKD-EPI) (>=60) BUN/Creatinine Ratio (12.00-20.00) Ratio POC Glucose (mg/dL) 148 H 112 H (70-110) mg/dL Calcium (8.7-10.3) mg/dL AST (14-35) U/L Total Protein (6.2-8.2) g/dL Albumin (3.8-4.9) g/dL Albumin/Globulin Ratio (1.60-3.17) Ratio 05/16/24 Range/Units 05:13 RBC (4.40-5.60) X 10*6/uL Hgb (13.0-17.0) g/dL Hct (39.6-50.0) % MCH (27.0-32.0) pg Creatinine 1.7 H (0.6-1.5) mg/dL Est GFR (CKD-EPI) 40 L (>=60) BUN/Creatinine Ratio 8.82 L (12.00-20.00) Ratio POC Glucose (mg/dL) (70-110) mg/dL Calcium 8.5 L (8.7-10.3) mg/dL AST 38 H (14-35) U/L Total Protein 6.0 L (6.2-8.2) g/dL Albumin 3.6 L (3.8-4.9) g/dL Albumin/Globulin Ratio 1.50 L (1.60-3.17) Ratio Microbiology - Last 24 Hours (Table) 05/12/24 12:11 Stool Culture - Final Stool Pseudomonas aeruginosa Assessment and Plan Plan: Assessment: 1. Acute kidney injury secondary to vasomotor nephropathy secondary to hypovolemia and further worsen with the use of diuretic. Creatinine 3.1 on admission and is improved to 1.5 dated May 15, 2024 -1.7 today. No hydronephrosis noted on CAT scan. 2. Chronic kidney disease stage IIIb with baseline creatinine near 1.5 secondary to nephrosclerosis. 3. Severe sepsis secondary to colitis on antibiotics. Stool culture positive for Pseudomonas. 4. Metabolic acidosis secondary to acute kidney injury, lactic acidosis, IV fluids and GI losses. Improved. 5. Hypokalemia from poor intake. Replaced. Better. Plan: Maintain IV hydration. Decrease rate to 50 cc an hour. Replace potassium. Encouraged oral intake. Avoid nephrotoxins. Patient received IV contrast for CT scan May 15, 2024. Monitor for contrast associated acute kidney injury. Repeat BMP and magnesium level 2 to 3 days postdischarge. Follow-up outpatient 1 to 2 weeks postdischarge.
[2024-05-16] MEDS: POTASSIUM CHLORIDE ER 20 MEQ TAB.ER PO STA (11:24)
[2024-05-16 11:45] LABS: Glucose,Whole Blood 102 mg/dL (70-110)
--- NOTE | 2024-05-16 13:01 | P.DS ---
Providers Date of admission: 05/11/24 16:30 Expected date of discharge: 05/16/24 Attending physician: Elias Washington Consults: 05/11/24 14:55 Consult Physician Routine Consulting Provider: Gianni Barone Consult Reason/Comments: MADI, dehydration Do you want consulting provider notified?: Yes 05/11/24 16:32 Consult Physician Routine Consulting Provider: Robles Lassiter Consult Reason/Comments: Abdominal pain. Sepsis Do you want consulting provider notified?: Yes 05/11/24 16:42 Consult Physician Routine Consulting Provider: Margarito Joyner Consult Reason/Comments: Sepsis. Colitis Do you want consulting provider notified?: Already Contacted 05/12/24 09:57 Consult Physician Routine Consulting Provider: Yenny Joshi Consult Reason/Comments: Sepsis, acute colitis Do you want consulting provider notified?: Yes Primary care physician: Diego Fortune [place] [facility] Course: Discharge diagnoses; Severe sepsis Lactic acidosis Acute colitis involving descending and sigmoid colon with fluid collection adjacent to sigmoid colon measuring 3 cm Acute kidney injury Metabolic acidosis Abdominal pain History of hypertension History of hyperlipidemia History of diabetes mellitus Hospital course; patient is a 83-year-old gentleman with past medical history significant for hypertension, diabetes mellitus, hyperlipidemia who presented to the ER because of vomiting and diarrhea. Was brought in by family according to them patient is sick for the last couple of days. Patient has been having multiple episodes of diarrhea and vomiting. Vomiting is projectile, no evidence of any blood in it. Patient having multiple bouts of loose stools with no evidence of any blood in it. Patient also complains denies abdominal pain which is cramping in nature involving the whole abdomen. Patient's girlfriend is also been sick. There is no complaint of fever or chills. There is no complaint of chest pain or shortness of breath. Patient was complaining of lethargic and weakness. Patient has not been eating and drinking enough and was complaining of being thirsty. Because of the symptoms, patient brought to the ER Initial lab work done in the ER showed WBC 24.1, hemoglobin 12.3, platelet count 226, sodium 137, potassium 4.4, BUN 50, creatinine 3.15, glucose 145, lactate 8.9 magnesium 2.4 AST 30, ALT 27, Influenza A not detected Influenza B not detected RSV not detected COVID-19 not detected EKG done in the ER showed heart rate of 73 , no ST segment elevation or depression seen, no T-wave inversions seen. Chest x-ray done in the ER showed no acute cardiopulmonary process CT abdomen and pelvis done showed long segment wall thickening of the ascending and sigmoid colon with surrounding mesenteric inflammation and liquid stool suggesting infectious colitis. Additionally there is a small developing lobulated fluid collection adjacent to the sigmoid colon measuring approximately 3 cm, no drainable abscess at this time. Patient admitted to internal medicine service 05/13. Patient seen and examined. States he feels much better. State he wants to go home today. Discussed with him regarding need for him to stay in the hospital for further treatment. 05/14. Patient seen and examined blood work done this morning showed WBC 10.28, hemoglobin 10.4, platelet count 185, sodium 142, potassium 3.6, BUN 25,, creatinine 1.6. Denies any abdominal pain. Denies nausea or vomiting 05/15. Patient seen and examined. Blood work done today showed WBC 4.8, hemoten 0.6, sodium 134, potassium 3.3, BUN 17, creatinine 1.50. Denies abdominal pain. Denies diarrhea. States he feels better 05/16. Patient seen and examined. Repeat CT abdomen and pelvis done showed mild wall thickening of the sigmoid colon without organizing fluid collection or mass. Discussed with surgery, they recommended oral antibiotics. Discussed with ID, this prescribed Cipro and Flagyl. Patient blood pressure was elevated, started patient on Norvasc, nephrology recommended holding off on diuretics and LUKE and ARB's. Repeat blood work ordered for Monday. Discharged in stable condition PHYSICAL EXAMINATION: GENERAL: The patient is alert and oriented x3, not in any acute distress. Well developed, well nourished. HEENT: Pupils are round and equally reacting to light. EOMI. No scleral icterus. No conjunctival pallor. Normocephalic, atraumatic. No pharyngeal erythema. No thyromegaly. CARDIOVASCULAR: S1 and S2 present. No murmurs, rubs, or gallops. PULMONARY: Chest is clear to auscultation, no wheezing or crackles. ABDOMEN: Soft, nontender, nondistended, normoactive bowel sounds. No palpable organomegaly. MUSCULOSKELETAL: No joint swelling or deformity. EXTREMITIES: No cyanosis, clubbing, or pedal edema. NEUROLOGICAL: Gross neurological examination did not reveal any focal deficits. SKIN: No rashes. Dictation was produced using [employer] dictation software. please excuse any grammatical, word or spelling errors. Patient Condition at Discharge: Good Plan - Discharge Summary Discharge Rx Participant: No New Discharge Prescriptions: New metroNIDAZOLE [Flagyl] 500 mg PO TID #21 tab Ciprofloxacin HCl [Cipro] 500 mg PO BID 7 Days #14 tab amLODIPine [Norvasc] 2.5 mg PO DAILY #30 tablet Continue Timolol 0.25% Ophth Soln [Timoptic 0.25% Ophth Soln] 1 drop BOTH EYES DAILY Loratadine 10 mg PO DAILY Latanoprost [Latanoprost 0.005%] 1 drop BOTH EYES HS Atorvastatin [Lipitor] 20 mg PO HS metFORMIN HCL [Glucophage] 1,000 mg PO W/SUPPER Aspirin EC [Ecotrin Low Dose] 81 mg PO DAILY Discontinued lisinopriL [Zestril] 20 mg PO DAILY hydroCHLOROthiazide [Hydrodiuril] 25 mg PO DAILY Discharge Medication List Aspirin EC [Ecotrin Low Dose] 81 mg PO DAILY 05/11/24 [History] Atorvastatin [Lipitor] 20 mg PO HS 05/11/24 [History] Latanoprost [Latanoprost 0.005%] 1 drop BOTH EYES HS 05/11/24 [History] Loratadine 10 mg PO DAILY 05/11/24 [History] Timolol 0.25% Ophth Soln [Timoptic 0.25% Ophth Soln] 1 drop BOTH EYES DAILY 05/11/24 [History] metFORMIN HCL [Glucophage] 1,000 mg PO W/SUPPER 05/11/24 [History] Ciprofloxacin HCl [Cipro] 500 mg PO BID 7 Days #14 tab 05/16/24 [Rx] amLODIPine [Norvasc] 2.5 mg PO DAILY #30 tablet 05/16/24 [Rx] metroNIDAZOLE [Flagyl] 500 mg PO TID #21 tab 05/16/24 [Rx] Follow up Appointment(s)/Referral(s): Diego Fortune DO [Primary Care Provider] - 1-2 days Yenny Joshi MD [STAFF PHYSICIAN] - 1 Week Sid Mcguire DO [STAFF PHYSICIAN] - 1 Week Activity/Diet/Wound Care/Special Instructions: Resume metformin from 05/17/2024 because of recent contrast exposure Discharge Disposition: HOME SELF-CARE
--- NOTE | 2024-05-16 14:34 | P.PN ---
Subjective Progress Note Date: 05/16/24 SURGICAL PROGRESS NOTE CHIEF COMPLAINT: Abdominal pain HISTORY OF PRESENT ILLNESS: Patient denies any abdominal pain. Denies any nausea or vomiting. CT scan abdomen pelvis reports mild wall thickening of the sigmoid colon without organizing fluid collection or mass visualized. Patient tolerating diet. Afebrile. WBC 4.70 creatinine 1.5 up to 1.7. PHYSICAL EXAM: VITAL SIGNS: Reviewed. GENERAL: Well-developed in no acute distress. ABDOMEN: Soft. Nondistended. Nontender. NEUROLOGIC: Alert and oriented. Cranial nerves II through XII grossly intact. ASSESSMENT: 1. Colitis with abscess. No further abscess noted on CAT scan 2. Acute kidney injury PLAN: -Patient can be discharged from surgical standpoint -Discharge antibiotics per ID service Physician Policy Cancellation Clerk note has been reviewed by physician. Signing provider agrees with the documented findings, assessment, and plan of care. Objective - Vital Signs Vital signs: Vital Signs Temp 99.7 F H 05/16/24 07:46 Pulse 66 05/16/24 07:46 Resp 18 05/16/24 07:46 BP 153/75 05/16/24 07:46 Pulse Ox 96 05/16/24 07:46 FiO2 Intake & Output 05/15/24 05/16/24 05/16/24 18:59 06:59 18:59 Other: Voiding Method Toilet Toilet # Voids 3 1 # Bowel Movements 1 1 - Labs CBC & Chem 7: 05/16/24 05:13 05/16/24 05:13 Labs: Abnormal Lab Results - Last 24 Hours (Table) 05/15/24 05/15/24 05/16/24 Range/Units 17:27 20:29 05:13 RBC 3.27 L (4.40-5.60) X 10*6/uL Hgb 10.6 L (13.0-17.0) g/dL Hct 31.5 L (39.6-50.0) % MCH 32.4 H (27.0-32.0) pg Creatinine (0.6-1.5) mg/dL Est GFR (CKD-EPI) (>=60) BUN/Creatinine Ratio (12.00-20.00) Ratio POC Glucose (mg/dL) 148 H 112 H (70-110) mg/dL Calcium (8.7-10.3) mg/dL AST (14-35) U/L Total Protein (6.2-8.2) g/dL Albumin (3.8-4.9) g/dL Albumin/Globulin Ratio (1.60-3.17) Ratio 05/16/24 Range/Units 05:13 RBC (4.40-5.60) X 10*6/uL Hgb (13.0-17.0) g/dL Hct (39.6-50.0) % MCH (27.0-32.0) pg Creatinine 1.7 H (0.6-1.5) mg/dL Est GFR (CKD-EPI) 40 L (>=60) BUN/Creatinine Ratio 8.82 L (12.00-20.00) Ratio POC Glucose (mg/dL) (70-110) mg/dL Calcium 8.5 L (8.7-10.3) mg/dL AST 38 H (14-35) U/L Total Protein 6.0 L (6.2-8.2) g/dL Albumin 3.6 L (3.8-4.9) g/dL Albumin/Globulin Ratio 1.50 L (1.60-3.17) Ratio Microbiology - Last 24 Hours (Table) 05/12/24 12:11 Stool Culture - Final Stool Pseudomonas aeruginosa
--- NOTE | 2024-05-16 15:00 | P.PN ---
Subjective Progress Note Date: 05/16/24 Principal diagnosis: Reason for follow-up is colitis/possible abscess Patient is a 83-year-old male with a past medical history significant for diabetes mellitus hypertension PTSD presenting to the hospital for evaluation of vomiting and diarrhea, patient did have elevated white count CT abdominal pelvis did shows long segment thickening of the descending and sigmoid colon with loculated fluid collection probably this consultation. On today's evaluation that is 05/16/2024,the patient remains to be afebrile, patient is on room air not requiring supplemental oxygen and denies any shortness of breath no chest pain or cough.Patient denies having any nausea or vomiting, no abdominal pain and did have improvement in his diarrhea. Patient did have white count of 4.70, creatinine is 1.7 stool with a Pseudomonas blood culture negative repeat CT shows improvement in the colitis and no intra- abdominal abscess Objective - Vital Signs Vital signs: Vital Signs Temp 99.7 F H 05/16/24 07:46 Pulse 66 05/16/24 07:46 Resp 18 05/16/24 07:46 BP 153/75 05/16/24 07:46 Pulse Ox 96 05/16/24 07:46 FiO2 Intake & Output 05/15/24 05/16/24 05/16/24 18:59 06:59 18:59 Other: Voiding Method Toilet Toilet # Voids 3 1 # Bowel Movements 1 1 - Exam GENERAL DESCRIPTION: An elderly male lying in bed in no distress RESPIRATORY SYSTEM: Unlabored breathing , decreased breath sounds at bases HEART: S1 S2 regular rate and rhythm , ABDOMEN: Soft , no tenderness EXTREMITIES: No edema feet - Labs CBC & Chem 7: 05/16/24 05:13 05/16/24 05:13 Labs: Abnormal Lab Results - Last 24 Hours (Table) 05/15/24 05/15/24 05/16/24 Range/Units 17:27 20:29 05:13 RBC 3.27 L (4.40-5.60) X 10*6/uL Hgb 10.6 L (13.0-17.0) g/dL Hct 31.5 L (39.6-50.0) % MCH 32.4 H (27.0-32.0) pg Creatinine (0.6-1.5) mg/dL Est GFR (CKD-EPI) (>=60) BUN/Creatinine Ratio (12.00-20.00) Ratio POC Glucose (mg/dL) 148 H 112 H (70-110) mg/dL Calcium (8.7-10.3) mg/dL AST (14-35) U/L Total Protein (6.2-8.2) g/dL Albumin (3.8-4.9) g/dL Albumin/Globulin Ratio (1.60-3.17) Ratio 05/16/24 Range/Units 05:13 RBC (4.40-5.60) X 10*6/uL Hgb (13.0-17.0) g/dL Hct (39.6-50.0) % MCH (27.0-32.0) pg Creatinine 1.7 H (0.6-1.5) mg/dL Est GFR (CKD-EPI) 40 L (>=60) BUN/Creatinine Ratio 8.82 L (12.00-20.00) Ratio POC Glucose (mg/dL) (70-110) mg/dL Calcium 8.5 L (8.7-10.3) mg/dL AST 38 H (14-35) U/L Total Protein 6.0 L (6.2-8.2) g/dL Albumin 3.6 L (3.8-4.9) g/dL Albumin/Globulin Ratio 1.50 L (1.60-3.17) Ratio Microbiology - Last 24 Hours (Table) 05/12/24 12:11 Stool Culture - Final Stool Pseudomonas aeruginosa Assessment and Plan (1) Colitis Status: Acute Code(s): K52.9 - NONINFECTIVE GASTROENTERITIS AND COLITIS, UNSPECIFIED SNOMED Code(s): 93374606 (2) Leukocytosis Status: Acute Code(s): D72.829 - ELEVATED WHITE BLOOD CELL COUNT, UNSPECIFIED SNOMED Code(s): 173603159 (3) Abscess Status: Acute Code(s): L02.91 - CUTANEOUS ABSCESS, UNSPECIFIED SNOMED Code(s): 822197142 (4) Sepsis Status: Acute Code(s): A41.9 - SEPSIS, UNSPECIFIED ORGANISM SNOMED Code(s): 67227483 Plan: 1patient presenting to the hospital with acute nausea vomiting and diarrhea in this patient did have significantly evaded white count elevated lactic acid with evidence of diffuse colitis involving the descending sigmoid colon and there was also mention of some loculated fluid collection with a question of possible peridiverticular abscess and will need to cover for enteric gram-negative both aerobes and anaerobes 2-stool for C. difficile negative, stool culture currently growing Pseudomonas sensitivities pending 3-patient has shown clinical improvement and repeat CT did shows overall improvement no intra-abdominal abscess he will finish therapy with oral Cipro and Flagyl prescription may be sent to the pharmacy Dictation was produced using [employer] dictation software. please excuse any grammatical, word or spelling errors. Time with Patient: Less than 30
== END 2024-05-16 14:54 | disposition home or self-care (01) | DRG 871 ==
LOC: EC 12:31 → 4SSUR 16:30 → 3SCARD 19:46 → 4SSUR 05-12 11:21
PROVIDERS: ADMIT Hospitalist; ATTEND Hospitalist
DX: A41.52 Sepsis due to Pseudomonas (principal); N17.0 Acute kidney failure with tubular necrosis; E87.20 Acidosis, unspecified; K63.0 Abscess of intestine; E11.22 Type 2 diabetes mellitus with diabetic chronic kidney disease; N18.32 Chronic kidney disease, stage 3b; Z11.52 Encounter for screening for COVID-19; I12.9 Hypertensive chronic kidney disease with stage 1 through stage 4 chronic kidney disease, or unspecified chronic kidney disease; R65.20 Severe sepsis without septic shock; Z66 Do not resuscitate; E86.0 Dehydration; K52.9 Noninfective gastroenteritis and colitis, unspecified; E78.5 Hyperlipidemia, unspecified; E86.1 Hypovolemia; F43.10 Post-traumatic stress disorder, unspecified; Z87.891 Personal history of nicotine dependence; E87.6 Hypokalemia; M19.90 Unspecified osteoarthritis, unspecified site; Z82.49 Family history of ischemic heart disease and other diseases of the circulatory system; Z79.84 Long term (current) use of oral hypoglycemic drugs; Z79.82 Long term (current) use of aspirin; Z79.899 Other long term (current) drug therapy; T50.2X5A Adverse effect of carbonic-anhydrase inhibitors, benzothiadiazides and other diuretics, initial encounter; X58.XXXA Exposure to other specified factors, initial encounter
CPT/HCPCS: 36415; 51798; 71046; 74176; 74177; 76770; 80048; 80053; 81001; 82009; 82565; 82570; 83036; 83605; 83735; 83930; 83935; 84145; 84300; 85025; 85610; 85730; 87040; 87045; 87046; 87324; 87636; 93005; 96361; 96365; 96366; 96367; 96368; 96375; 99291

== ENCOUNTER → 2024-05-18 | Outpatient (CLI) | payer MEDICARE ==
[2024-05-19 08:37] LABS: BUN/Creat Ratio 18.94 Ratio (12.00-20.00); Blood Urea Nitrogen 30.3 mg/dL (9.0-27.0); Calcium 8.9 mg/dL (8.7-10.3); Carbon Dioxide 24.4 mmol/L (21.6-31.8); Chloride 104 mmol/L (96-109); Glucose 102 mg/dL (70-110); Potassium 3.6 mmol/L (3.5-5.5); Sodium 139 mmol/L (135-145)
== END | disposition home or self-care (01) ==
LOC: LABWHC1 11:05
PROVIDERS: ATTEND Hospitalist
DX: K52.9 Noninfective gastroenteritis and colitis, unspecified (principal)
CPT/HCPCS: 36415; 80048

== ENCOUNTER → 2024-06-08 | Outpatient (CLI) | payer MEDICARE ==
[2024-06-09 06:27] LABS: Basophils # (A) 0.02 X 10*3/uL (0.00-0.10); Basophils % (A) 0.4 %; Eosinophils # (A) 0.25 X 10*3/uL (0.04-0.35); Eosinophils % (A) 4.6 %; HCT 30.4 % (39.6-50.0); HGB 9.9 g/dL (13.0-17.0); Lymphocytes # (A) 1.47 X 10*3/uL (0.90-5.00); MCHC 32.6 g/dL (32.0-37.0); MCV 98.4 FL (80.0-97.0); Mean Platelet Volume 10.6 FL (9.5-12.2); Monocytes # (A) 0.46 X 10*3/uL (0.20-1.00); Monocytes % (A) 8.4 %; NRBC Per 100 WBC 0 X 10*3/uL (0.00-0.01); Neutrophils # (A) 3.24 X 10*3/uL (1.80-7.70); Neutrophils % (A) 59.4 %; Platelet Count 211 X 10*3/uL (140-440); RBC 3.09 X 10*6/uL (4.40-5.60); RDW 13.2 % (11.5-14.5); WBC 5.45 X 10*3/uL (4.50-10.00)
[2024-06-09 09:51] LABS: ALT 8 U/L (10-49); AST 17 U/L (14-35); Albumin 3.7 g/dL (3.8-4.9); Albumin/Globulin Ratio 1.54 Ratio (1.60-3.17); Alkaline Phosphatase 45 U/L (41-126); BUN/Creat Ratio 19.69 Ratio (12.00-20.00); Blood Urea Nitrogen 25.6 mg/dL (9.0-27.0); Calcium 9.1 mg/dL (8.7-10.3); Carbon Dioxide 26.2 mmol/L (21.6-31.8); Chloride 104 mmol/L (96-109); Globulin 2.4 g/dL (1.6-3.3); Glucose 100 mg/dL (70-110); Magnesium 1.8 mg/dL (1.5-2.4); Potassium 4.3 mmol/L (3.5-5.5); Sodium 139 mmol/L (135-145); Total Bilirubin 0.5 mg/dL (0.3-1.2); Total Protein 6.1 g/dL (6.2-8.2)
== END | disposition home or self-care (01) ==
LOC: LABWHC1 10:14
PROVIDERS: ATTEND Family Medicine
DX: D72.829 Elevated white blood cell count, unspecified (principal); R53.83 Other fatigue
CPT/HCPCS: 36415; 80053; 83735; 85025